=== PATIENT | female | born 1930 | race Caucasian/White ===

== ENCOUNTER 2020-11-25 17:38 | Inpatient (IN) ==
[2020-11-25] MEDS ORDERED: IOPAMIDOL 100 ML BOTTLE IV ONE (17:39)
--- NOTE | 2020-11-25 18:01 | Emergency Department Note ---
Abdominal Pain HPI General Chief Complaint: Flank Pain Stated Complaint: flank pain Time Seen by Provider: 11/25/20 22:55 Source: patient and EMS Mode of arrival: EMS Limitations: physical limitation (The patient's physical exam is limited somewhat by morbid obesity) History of Present Illness HPI Narrative: Narrative: Presents via EMS to room T6 for evaluation of left- sided flank pain, left-sided abdominal pain and change in mentation. The patient lives at home with her . She receives 24-hour in-home health care and her granddaughter checks on her frequently. The patient's history is provided primarily by the granddaughter as well as the patient. The patient symptoms started 2 to 3 days ago with pain primarily in the left lower quadrant extending into the left flank and paraspinal region. Symptoms are constant and have gotten progressively worse. The granddaughter notes that the patient has had a change in mentation since this morning. She states that she is "not herself". Patient also reports dry heaves with occasional vomiting. There is no rectal bleeding, melanotic stool or diarrhea. There is no dysuria, hematuria frequency urgency. No fevers or shaking chills. No chest pain. No shortness of breath. No cough or sputum production. There has been no reported fall or head injury. No additional trauma. Symptoms are constant. There are no reported exacerbating or alleviating factors. Related Data Home Medications Medication Instructions Recorded Confirmed aspirin 81 mg tablet,delayed 81 mg PO QDAY 12/27/18 11/25/20 release blood sugar diagnostic, drum #51 each 12/27/18 11/16/19 cholecalciferol (vitamin D3) 125 5,000 unit PO QDAY 12/27/18 11/25/20 mcg (5,000 unit) tablet coenzyme Q10 10 mg capsule 10 mg PO QDAY cap 12/27/18 11/25/20 cranberry 500 mg capsule 500 mg PO QDAY cap 12/27/18 11/25/20 insulin glargine 100 unit/mL See Rx Instructions SUB-Q QDAY 12/27/18 11/25/20 subcutaneous solution insulin syringe-needle U-100 1 mL #10 each 12/27/18 11/16/19 31 gauge x 5/16" medical compression stockings 1 dose MISCELLANE DAILY 12/27/18 11/25/20 meloxicam 15 mg tablet 15 mg PO QDAY 12/27/18 11/25/20 multivitamin 1 tab PO QDAY 12/27/18 11/25/20 omega-3 fatty acids 350 mg PO QDAY 12/27/18 11/25/20 lactobacillus combination no.8 3 3,000 mmu cells PO QDAY 08/17/19 11/25/20 billion cell capsule Previous Rx's Medication Instructions Recorded conjugated estrogens 0.625 mg/gram 0.3125 mg VAGINAL QDAY #30 g 08/17/19 vaginal cream levofloxacin 500 mg PO QDAY #4 tab 05/09/20 amoxicillin-pot clavulanate 1 tab PO BID #14 tab 05/29/20 [Augmentin] ondansetron 4 mg PO Q6H PRN #20 tab 07/08/20 Allergies Allergy/AdvReac Type Severity Reaction Status Date / Time azithromycin Allergy Severe SOB, Verified 07/08/20 15:34 throat swelling took a few weeks ago acetaminophen [From Vicodin] Allergy Unknown Unknown Verified 07/08/20 15:34 Benzonatate Allergy Unknown Unknown Verified 07/08/20 15:34 [From Tessalon Perles] cephalexin [From Keflex] Allergy Unknown unknown Verified 07/08/20 15:34 ciprofloxacin Allergy Unknown Unknown Verified 07/08/20 15:34 clindamycin Allergy Unknown unknown Verified 07/08/20 15:34 furosemide Allergy Unknown Unknown Verified 07/08/20 15:34 hydrocodone Allergy Unknown unknown Verified 07/08/20 15:34 metformin [From Glucophage] Allergy Unknown Unknown Verified 07/08/20 15:34 morphine Allergy Unknown Unknown Verified 07/08/20 15:34 nitrofurantoin Allergy Unknown unknown Verified 07/08/20 15:34 [From Macrobid] Nortriptyline Allergy Unknown Unknown Verified 07/08/20 15:34 oxytetracycline Allergy Unknown Unknown Verified 07/08/20 15:34 [From Terramycin] pioglitazone [From Actos] Allergy Unknown Unknown Verified 07/08/20 15:34 rofecoxib [From Vioxx] Allergy Unknown Unknown Verified 07/08/20 15:34 Rosiglitazone [From Avandia] Allergy Unknown Unknown Verified 07/08/20 15:34 Streptomycin Allergy Unknown Unknown Verified 07/08/20 15:34 Sulfa (Sulfonamide Allergy Unknown Unknown Verified 07/08/20 15:34 Antibiotics) Warfarin [From Coumadin] Allergy Unknown unknown Verified 07/08/20 15:34 Cefadroxil [From Duricef] AdvReac Unknown Yeast Verified 07/08/20 15:34 infection Review of Systems ROS ROS Narrative: Narrative: All systems ED: reviewed and negative except as stated. 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) Frequent UTI (Chronic) Fall (Chronic 11/2018) Obesity (Chronic) Myalgia (Chronic) Arthralgia (Chronic) Coughing (Chronic) Falling (Chronic) Dyspnea on exertion (Chronic) Edema (Chronic) Dysfunction ovarian (Chronic) Lymphedema (Chronic) Shoulder pain (Chronic) Leg pain, right (Chronic) Weakness of left side of body (Chronic) 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) Decreased mobility (Chronic) Cutaneous abscess of back [any part, except buttock] (Chronic) Hemorrhagic cystitis (Chronic) Other dermatophytoses (Chronic) Urinary incontinence (Chronic) Vitamin D deficiency (Chronic) Hyperlipidemia (Chronic) Type 2 diabetes mellitus without complications (Chronic) Fatigue (Chronic) SOB (shortness of breath) (Chronic) Benign essential hypertension (Chronic) Palpitations (Chronic) Influenza A virus present (Chronic) Nondisplaced fracture of proximal phalanx of left lesser toe(s), subsequent encounter for fracture with routine healing (Chronic) Candidiasis of skin (Chronic) Cellulitis of leg, right (Chronic) Cellulitis (Chronic) Edema extremities (Chronic) Right facial numbness (Chronic) Influenza A (Chronic) Open toe fracture (Chronic) Weakness (Chronic) Multiple falls (Chronic) Diabetes mellitus with insulin therapy (Chronic) History of hysterectomy (Chronic) Genitourinary bleeding (Chronic) UTI (urinary tract infection) (Chronic) Medical History (Updated 11/25/20 @ 23:16 by Omari Block MD) Arthralgia Benign essential hypertension Candidiasis of skin Cellulitis of leg, right Coughing Cutaneous abscess of back [any part, except buttock] Decreased mobility Dysfunction ovarian Dyspnea on exertion Edema Fall (11/2018) Fell out of wheelchair and lacerated and fractured her left fifth toe. Falling Fatigue Fracture of fifth toe, left, closed (11/2018) Frequent UTI Hemorrhagic cystitis Hyperlipidemia Influenza A virus present Leg pain, right Lumbar back pain with radiculopathy affecting lower extremity Lymphedema Morbid obesity Myalgia Myocardial infarct, old Nondisplaced fracture of proximal phalanx of left lesser toe(s), subsequent encounter for fracture with routine healing Obesity Other dermatophytoses Palpitations Shoulder pain SOB (shortness of breath) Type 2 diabetes mellitus without complications Urinary incontinence Vitamin D deficiency Weakness of left side of body Surgical History H/O: hysterectomy History of cholecystectomy History of total abdominal hysterectomy Family History Sister Breast cancer Unknown CAD (coronary artery disease) Cancer Myocardial infarction acute Social History Smoking Status: Never smoker Alcohol Intake Frequency: does not drink Substance Use: does not use Exam Narrative Narrative: Narrative: General Limitations: physical limitation (The patient's physical exam is limited somewhat by morbid obesity) General appearance: Present alert and in no apparent distress Head Head: Present atraumatic, normocephalic and normal inspection Eye Eye: Present normal appearance and EOMI; Absent conjunctival injection ENT ENT: Present normal exam and mucous membranes moist Neck Neck: Present normal inspection and trachea midline Respiratory Respiratory: Present normal lung sounds bilaterally; Absent respiratory distress Cardiovascular Cardiovascular: Present regular rate, normal rhythm and normal heart sounds Adbominal Abdominal: Present soft; Absent distention, tenderness, guarding and rebound Extremities Extremities: Present normal inspection; Absent tenderness Back Back: Present normal inspection, tenderness (There is diffuse tenderness to palpation primarily in the left paraspinal musculature.) and CVA tenderness (L) Neurological Neurological: Present alert, oriented X3 and CN II-XII intact; Absent motor sensory deficit Psychiatric Psychiatric: Present normal affect and normal mood Skin Skin: Present warm (WNL) and dry; Absent rash Course Vital Signs Vital signs: Vital Signs Temperature 98.2 F 11/25/20 17:40 Pulse Rate 100 H 11/25/20 17:40 Respiratory Rate 20 11/25/20 17:40 Blood Pressure 141/81 11/25/20 17:40 Pulse Oximetry (%) 98 11/25/20 17:40 Temperature 98.2 F 11/25/20 17:40 Pulse Rate 74 11/25/20 22:52 Respiratory Rate 16 11/25/20 22:52 Blood Pressure 100/50 11/25/20 22:52 Pulse Oximetry (%) 94 11/25/20 22:52 MDM MDM Narrative Medical decision making narrative: Narrative: Lab Data Lab results reviewed: Yes I reviewed the patient's lab results. Result diagrams: 11/25/20 18:17 11/25/20 18:17 Labs: Lab Results 11/25/20 11/25/20 11/25/20 Range/Units 18:16 18:17 18:17 WBC 15.8 H (4.5-11.0) K/mcL RBC 4.81 (4.00-5.20) M/mcL Hgb 14.1 (12.0-15.0) g/dL Hct 44.7 (36.0-48.0) % MCV 92.9 (80.0-100.0) fL MCH 29.3 (26.0-34.0) pg MCHC 31.5 (31.0-36.0) g/dL RDW 14.5 (11.5-14.5) % Plt Count 171 (140-440) K/mcL MPV 10.4 (7.4-10.4) fL Neut % (Auto) 92.1 H (38.0-78.0) % Lymph % (Auto) 3.7 L (15.0-49.0) % [place] % (Auto) 4.0 (1.0-12.0) % Eos % (Auto) 0 (0.0-7.0) % Baso % (Auto) 0.2 (0.0-2.0) % Lymph # (Auto) 0.58 L (1.50-4.80) K/mcL [place] # (Auto) 0.63 (0.10-0.90) K/mcL Eos # (Auto) 0 (0.00-0.70) K/mcL Baso # (Auto) 0.03 (0.00-0.20) K/mcL Absolute Neutrophils 14.57 H (1.80-8.00) K/mcL VBG Lactic Acid 2.6 H (0.5-2.0) mmol/L Sodium 135 (133-145) mmol/L Potassium 3.9 (3.3-5.1) mmol/L Chloride 102 (96-108) mmol/L Carbon Dioxide 24 (22-30) mmol/L Anion Gap 9.0 (8.0-16.0) BUN 9 (8-23) mg/dL Creatinine 0.8 (0.6-1.1) mg/dL POC Creatinine 0.6 (0.6-1.2) mg/dL GFR Calculation 66 Glucose 211 H (70-105) mg/dL Calcium 9.1 (8.6-10.4) mg/dL Total Bilirubin 1.1 H (0.1-1.0) mg/dL AST 37 H (<32) U/L ALT 18 (<40) U/L Alkaline Phosphatase 117 (39-117) U/L Total Protein 6.3 (5.9-8.4) gm/dL Albumin 3.2 (3.2-5.2) gm/dL Globulin 3.1 (2.2-3.7) gm/dL Albumin/Globulin Ratio 1.0 (1.0-2.3) Urine Color Urine Appearance (Clear) Urine pH (5.0-9.0) Ur Specific [place] (1.000-1.035) Urine Protein (Negative) mg/dL Urine Glucose (UA) (Negative) mg/dL Urine Ketones (Negative) mg/dL Urine Occult Blood (Negative) mg/dL Urine Nitrate (Negative) Urine Bilirubin (Negative) mg/dL Urine Urobilinogen mg/dL Ur Leukocyte Esterase (Negative) /ug Urine RBC (0-3) /hpf Urine WBC (0-4) /hpf Ur Squamous Epith Cells (0-4) /hpf Urine Bacteria (0) /hpf Urine Mucus (None) /hpf Ur Culture Indicated? 11/25/20 Range/Units 20:52 WBC (4.5-11.0) K/mcL RBC (4.00-5.20) M/mcL Hgb (12.0-15.0) g/dL Hct (36.0-48.0) % MCV (80.0-100.0) fL MCH (26.0-34.0) pg MCHC (31.0-36.0) g/dL RDW (11.5-14.5) % Plt Count (140-440) K/mcL MPV (7.4-10.4) fL Neut % (Auto) (38.0-78.0) % Lymph % (Auto) (15.0-49.0) % [place] % (Auto) (1.0-12.0) % Eos % (Auto) (0.0-7.0) % Baso % (Auto) (0.0-2.0) % Lymph # (Auto) (1.50-4.80) K/mcL [place] # (Auto) (0.10-0.90) K/mcL Eos # (Auto) (0.00-0.70) K/mcL Baso # (Auto) (0.00-0.20) K/mcL Absolute Neutrophils (1.80-8.00) K/mcL VBG Lactic Acid (0.5-2.0) mmol/L Sodium (133-145) mmol/L Potassium (3.3-5.1) mmol/L Chloride (96-108) mmol/L Carbon Dioxide (22-30) mmol/L Anion Gap (8.0-16.0) BUN (8-23) mg/dL Creatinine (0.6-1.1) mg/dL POC Creatinine (0.6-1.2) mg/dL GFR Calculation Glucose (70-105) mg/dL Calcium (8.6-10.4) mg/dL Total Bilirubin (0.1-1.0) mg/dL AST (<32) U/L ALT (<40) U/L Alkaline Phosphatase (39-117) U/L Total Protein (5.9-8.4) gm/dL Albumin (3.2-5.2) gm/dL Globulin (2.2-3.7) gm/dL Albumin/Globulin Ratio (1.0-2.3) Urine Color [place] Urine Appearance Cloudy A (Clear) Urine pH 5.0 (5.0-9.0) Ur Specific [place] 1.034 (1.000-1.035) Urine Protein 30 A (Negative) mg/dL Urine Glucose (UA) Negative (Negative) mg/dL Urine Ketones 5 A (Negative) mg/dL Urine Occult Blood >=1.0 A (Negative) mg/dL Urine Nitrate Pos A (Negative) Urine Bilirubin Negative (Negative) mg/dL Urine Urobilinogen Negative mg/dL Ur Leukocyte Esterase 250 A (Negative) /ug Urine RBC 76 H (0-3) /hpf Urine WBC 178 H (0-4) /hpf Ur Squamous Epith Cells 3 (0-4) /hpf Urine Bacteria Many A (0) /hpf Urine Mucus Many A (None) /hpf Ur Culture Indicated? yes ED POC Tests ED POC Tests: AGNIESZKA - Influenza A Negative AGNIESZKA - Influenza B Negative AGNIESZKA - SARS Antigen Negative Radiology Data Radiology results reviewed: Yes I reviewed the patient's radiology results. CC TIME Critical Care Time Critical Care Time: Yes Total Critical Care Time: 30 Attestation: Approximately [30] minutes of critical care time was used in order to assess and manage the high probability of imminent or life threatening deterioration to genitourinary, infectious disease which required my highest level of p reparedness and interventions with frequent patient assessments. This time is excluding time spent on separately billable procedures. The patient presents for evaluation of generalized malaise with left flank and left lower quadrant abdominal pain. CT scan shows evidence of mid ureterolithiasis with 2 mm stone and hydronephrosis. Patient's urinalysis is consistent with infection. The WBCs are elevated and the lactic acid is 2.6 consistent with severe sepsis. There is no acute kidney injury noted with normal BUN and creatinine. There is no CO2 of 24. The patient was given IV antibiotics after blood cultures. The patient is morbidly obese and th blood pressure measurements have occasionally been spurious. The patient has low blood pressure at baseline. Manual blood pressure is 105/58 with a of 74. I discussed the case with Dr. Gonzalez, urologist. He agrees to consult on the pat ient and agrees with current management with antibiotics and fluids. I have also discussed the case with the admitting hospitalist. We will add that the patient to the medical floor. The patient will be n.p.o. after midnight. Discharge Plan Patient/Caregiver Discharge Instructions Pt seen by BAR HOST/HOSTESS/PA only: No Clinical Impression: Acute pyelonephritis, Ureterolithiasis Patient Disposition: Xfer As Inpt ([facility]) Follow up with: Red Love DO [Primary Care Provider] - Prescriptions: No Action meloxicam 15 mg tablet 15 mg PO QDAY RF: 0 Lantus U-100 Insulin 100 unit/mL solution See Rx Instructions SUB-Q QDAY RF: 0 aspirin 81 mg tablet,delayed release (DR/EC) 81 mg PO QDAY RF: 0 cranberry 500 mg capsule 500 mg PO QDAY RF: 0 coenzyme Q10 [Co Q-10] 10 mg capsule 10 mg PO QDAY RF: 0 omega-3 fatty acids 350 mg PO QDAY RF: 0 multivitamin tablet 1 tab PO QDAY RF: 0 (DME) insulin syringe-needle U-100 [BD Insulin Syringe Ultra-Fine] 1 mL 31 ga uge x 5/ syringe See Dose Instructions .ROUTE .MEDSUPPLY Qty: 10 RF: 0 cholecalciferol (vitamin D3) 5,000 unit tablet 5,000 unit tablet 5,000 unit PO QDAY RF: 0 (DME) blood sugar diagnostic, drum-type strips strip See Dose Instructions .ROUTE .MEDSUPPLY Qty: 51 RF: 0 medical compression stockings 1 dose MISCELLANE DAILY RF: 0 lactobacillus combination no.8 3 billion cell capsule 3 billion cell capsule 3,000 mmu cells PO QDAY RF: 0 Premarin 0.625 mg/gram cream 0.3125 mg VAGINAL QDAY Qty: 30 RF: 6 levofloxacin 500 mg tablet 500 mg PO QDAY Qty: 4 RF: 0 amoxicillin-pot clavulanate [Augmentin] 875-125 mg tablet 1 tab PO BID Qty: 14 RF: 0 ondansetron 4 mg tablet,disintegrating 4 mg PO Q6H PRN (Reason: nausea and vomiting) Qty: 20 RF: 0
[2020-11-25] MEDS ORDERED: ONDANSETRON 4 MG/2 ML VIAL IV ONE ×2 (18:05→21:54)
[2020-11-25] MEDS ORDERED: HYDROmorphone 0.5 MG/0.5 ML SYRINGE IV ONE (18:05)
[2020-11-25 18:23] LABS: POC Creatinine 0.6 mg/dL (0.6-1.2)
[2020-11-25 19:08] LABS: Basophils # (Auto) 0.03 K/mcL (0.00-0.20); Basophils % (Auto) 0.2 % (0.0-2.0); Eosinophils # (Auto) 0 K/mcL (0.00-0.70); Eosinophils % (Auto) 0 % (0.0-7.0); Hematocrit 44.7 % (36.0-48.0); Hemoglobin 14.1 g/dL (12.0-15.0); Lymphocytes # (Auto) 0.58 K/mcL (1.50-4.80); Lymphocytes % (Auto) 3.7 % (15.0-49.0); Mean Cell Volume 92.9 fL (80.0-100.0); Mean Corpuscular HGB Conc 31.5 g/dL (31.0-36.0); Mean Platelet Volume 10.4 fL (7.4-10.4); Monocytes # (Auto) 0.63 K/mcL (0.10-0.90); Neutrophils % (Auto) 92.1 % (38.0-78.0); Platelet Count 171 K/mcL (140-440); RBC 4.81 M/mcL (4.00-5.20); Red Cell Distribution Width 14.5 % (11.5-14.5); WBC 15.8 K/mcL (4.5-11.0)
[2020-11-25 19:30] LABS: ALT/SGPT 18 U/L (<40); AST/SGOT 37 U/L (<32); Albumin 3.2 gm/dL (3.2-5.2); Alkaline Phosphatase 117 U/L (39-117); Bilirubin,Total 1.1 mg/dL (0.1-1.0); Blood Urea Nitrogen 9 mg/dL (8-23); Calcium 9.1 mg/dL (8.6-10.4); Carbon Dioxide 24 mmol/L (22-30); Chloride 102 mmol/L (96-108); Globulin 3.1 gm/dL (2.2-3.7); Glomerular Filtration Rate 66; Glucose 211 mg/dL (70-105)
[2020-11-25] MEDS ORDERED: PIPERACILLIN SODIUM/TAZOBACTAM 4.5 GM in DEXTROSE 5% IN WATER 50 ML IV ONE (20:09)
[2020-11-25 22:02] LABS: Appearance,Urine CLOUDY (Clear); Bacteria,Urine MANY /hpf (0); Bilirubin,Urine Negative (Negative); Color,Urine AMBER; Culture Indicated,Urine yes; Glucose,Urine (UA) Negative (Negative); Ketones,Urine 5 mg/dL (Negative); Leukocyte Esterase,Urine 250 /ug (Negative); Mucus,Urine MANY /hpf; Nitrate,Urine POS (Negative); Protein,Urine 30 mg/dL (Negative); Specific Gravity,Urine 1.034 (1.000-1.035); Urine Blood >=1.0 mg/dL (Negative); Urine RBC 76 /hpf (0-3); Urine Squamous Epithelial Cell 3 /hpf (0-4); Urine WBC 178 /hpf (0-4); Urobilinogen,Urine Negative
[2020-11-26] MEDS ORDERED: DEXTROSE 31 GM ORAL.SUSP PO PRN
[2020-11-26] MEDS ORDERED: DEXTROSE 50% 50 ML VIAL IV PRN
[2020-11-26] MEDS ORDERED: ONDANSETRON 4 MG/2 ML VIAL IV PRN ×3 (00:03→09:42)
[2020-11-26] MEDS: 0.9 % SODIUM CHLORIDE 1,000 ML IV SCH ×2 (01:19→12:11)
[2020-11-26] MEDS: PIPERACILLIN SODIUM/TAZOBACTAM 3.375 GM in DEXTROSE 5% IN WATER 50 ML IV SCH ×2 (01:23→05:40)
--- NOTE | 2020-11-26 05:19 | Cat Scan Report ---
CLINICAL INFORMATION: Left flank pain COMPARISON: Chest CT 08/06/2014. TECHNIQUE: Following enteric contrast, 80 cc of Isovue-370 were injected intravenously, and 60 seconds later, 0.625 mm helical slices were obtained from the mid heart through the subtrochanteric regions. Following reconstruction, 2.5 mm sagittal, coronal and axial reformatted images were processed and reviewed at bone, lung and soft tissue windows. Five minutes later, 0.625 mm helical slices were obtained from the mid heart through the kidneys and viewed at soft tissue windows.The exam was performed using radiation dose optimization techniques including, but not limited to, automated exposure control, adjustment of the mA and/or kV according to patient size and use of iterative reconstruction technique. FINDINGS: Lung bases show minimal scattered atelectasis and/or scarring. There are no effusions. The heart is moderately enlarged with extremely heavy calcification in the mitral annulus. Mild aortic valve calcification is also noted. No change from remote chest CT Abdominal images show the gallbladder and bile ducts, liver, spleen, and pancreas are normal in size, configuration and attenuation without focal lesion. 15 mm low-attenuation lesion in the left adrenal gland and 17 mm low-attenuation lesion in the right adrenal gland are unchanged from a 08/06/[address] compatible with benign adenomas. Mild left hydronephrosis due to a small (2 mm) stone in the proximal left ureter. Mild perinephric edema is also noted. Urinary bladder is incompletely distended. Hysterectomy and oophorectomy changes noted. The stomach, small and large bowel are grossly normal. Small periumbilical hernia contains only mesenteric fat. Bone windows show no osseous abnormality. Severe degenerative change is present in both hips. IMPRESSION: 1. 2 mm stone in the proximal left ureter resulting in moderate left hydroureter/hydronephrosis. 2. 15 mm benign adenoma left adrenal gland and 17 mm benign adenoma right adrenal gland - both stable since chest CT over six years ago. 3. Severe bilateral hip degeneration 4. L4-5: Moderate broad disc protrusion facet arthropathy resulting in severe central canal and moderate lateral recess narrowing. There is impingement of the descending L5 nerve roots. 5. Small periumbilical hernia containing only mesenteric fat. Interpreted and Authenticated by: Johny Chavez 11/26/20
[2020-11-26] MEDS: INSULIN LISPRO 1 UNIT/0.01 ML UNIT SQ SCH ×4 (07:38→21:37)
--- NOTE | 2020-11-26 07:40 | Internal Med History&Physical ---
HPI History of Present Illness Patient information: Note initiated : 11/26/20 at 7:32 am Service Date, if different from initiated Date: [] Patient: Tiny Banuelos 89 y/o F admitted on 11/26/20 for flank pain. Chief Complaint: [] History of present illness: Ms. Banuelos is a 89 year old F Who presents to the ED with left-sided pain sharp for 3 days. Continue to worsen as well as having malodorous urine as well as nausea and vomiting. Work-up in the ED showed a stone in the left side with medical findings consistent with pyelonephritis. Dr. Gonzalez was contacted. Patient started on antibiotics IV fluids. Lactate was mildly elevated 2.6. Blood cultures drawn. No fevers or chills chest pain or shortness of breath. Patient has low blood pressure baseline per report. Review of Systems: Pertinent positives as above. Denies headache/fever/chills/chest pain/cough/dyspnea/diarrhea. Remaining 10 point review of system reviewed negative PFSH PFSH All Active Problems (Updated 11/25/20 @ 23:16 by Omari Block MD) Gastroenteritis (Acute) Acute pyelonephritis (Acute) Ureterolithiasis (Acute) Morbid obesity (Chronic) Acute upper respiratory infection (Acute) Acute bronchitis (Acute) Scintillating scotoma (Acute) Fracture of fifth toe, left, closed (Chronic 11/2018) Myocardial infarct, old (Chronic) Frequent UTI (Chronic) Fall (Chronic 11/2018) Obesity (Chronic) Myalgia (Chronic) Arthralgia (Chronic) Coughing (Chronic) Falling (Chronic) Dyspnea on exertion (Chronic) Edema (Chronic) Dysfunction ovarian (Chronic) Lymphedema (Chronic) Shoulder pain (Chronic) Leg pain, right (Chronic) Weakness of left side of body (Chronic) 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) Decreased mobility (Chronic) Cutaneous abscess of back [any part, except buttock] (Chronic) Hemorrhagic cystitis (Chronic) Other dermatophytoses (Chronic) Urinary incontinence (Chronic) Vitamin D deficiency (Chronic) Hyperlipidemia (Chronic) Type 2 diabetes mellitus without complications (Chronic) Fatigue (Chronic) SOB (shortness of breath) (Chronic) Benign essential hypertension (Chronic) Palpitations (Chronic) Influenza A virus present (Chronic) Nondisplaced fracture of proximal phalanx of left lesser toe(s), subsequent encounter for fracture with routine healing (Chronic) Candidiasis of skin (Chronic) Cellulitis of leg, right (Chronic) Cellulitis (Chronic) Edema extremities (Chronic) Right facial numbness (Chronic) Influenza A (Chronic) Open toe fracture (Chronic) Weakness (Chronic) Multiple falls (Chronic) Diabetes mellitus with insulin therapy (Chronic) History of hysterectomy (Chronic) Genitourinary bleeding (Chronic) UTI (urinary tract infection) (Chronic) Medical History (Updated 11/25/20 @ 23:16 by Omari Block MD) Arthralgia Benign essential hypertension Candidiasis of skin Cellulitis of leg, right Coughing Cutaneous abscess of back [any part, except buttock] Decreased mobility Dysfunction ovarian Dyspnea on exertion Edema Fall (11/2018) Fell out of wheelchair and lacerated and fractured her left fifth toe. Falling Fatigue Fracture of fifth toe, left, closed (11/2018) Frequent UTI Hemorrhagic cystitis Hyperlipidemia Influenza A virus present Leg pain, right Lumbar back pain with radiculopathy affecting lower extremity Lymphedema Morbid obesity Myalgia Myocardial infarct, old Nondisplaced fracture of proximal phalanx of left lesser toe(s), subsequent encounter for fracture with routine healing Obesity Other dermatophytoses Palpitations Shoulder pain SOB (shortness of breath) Type 2 diabetes mellitus without complications Urinary incontinence Vitamin D deficiency Weakness of left side of body Surgical History H/O: hysterectomy History of cholecystectomy History of total abdominal hysterectomy Family History Sister Breast cancer Unknown CAD (coronary artery disease) Cancer Myocardial infarction acute Social History (Updated 11/21/19 @ 18:21 by Rom Nguyen MD) marital status: occupational status: disabled smoking status: Never smoker alcohol intake frequency: does not drink substance use type: does not use MEDS/ALLERGIES Home Medications and Allergies Home Medications Medication Instructions Recorded Confirmed Type aspirin 81 mg tablet,delayed 81 mg PO QDAY 12/27/18 11/25/20 History release cholecalciferol (vitamin D3) 125 5,000 unit PO QDAY 12/27/18 11/25/20 History mcg (5,000 unit) tablet coenzyme Q10 10 mg capsule 10 mg PO QDAY cap 12/27/18 11/25/20 History cranberry 500 mg capsule 500 mg PO QDAY cap 12/27/18 11/25/20 History insulin glargine 100 unit/mL See Rx Instructions SUB-Q QDAY 12/27/18 11/25/20 History subcutaneous solution medical compression stockings 1 dose MISCELLANE DAILY 12/27/18 11/25/20 History meloxicam 15 mg tablet 15 mg PO QDAY 12/27/18 11/25/20 History multivitamin 1 tab PO QDAY 12/27/18 11/25/20 History omega-3 fatty acids 350 mg PO QDAY 12/27/18 11/25/20 History conjugated estrogens 0.625 mg/gram 0.3125 mg VAGINAL QDAY #30 g 08/17/19 11/25/20 Rx vaginal cream lactobacillus combination no.8 3 3,000 mmu cells PO QDAY 08/17/19 11/25/20 History billion cell capsule levofloxacin 500 mg PO QDAY #4 tab 05/09/20 11/25/20 Rx amoxicillin-pot clavulanate 1 tab PO BID #14 tab 05/29/20 11/25/20 Rx [Augmentin] ondansetron 4 mg PO Q6H PRN #20 tab 07/08/20 11/25/20 Rx Allergies Allergy/AdvReac Type Severity Reaction Status Date / Time azithromycin Allergy Severe SOB, Verified 11/26/20 10:47 throat swelling took a few weeks ago acetaminophen [From Vicodin] AdvReac Mild Vomiting Verified 11/26/20 10:47 Benzonatate AdvReac Mild Vomiting Verified 11/26/20 10:47 [From Tessalon Perles] Cefadroxil [From Duricef] AdvReac Mild Yeast Verified 11/26/20 10:26 infection cephalexin [From Keflex] AdvReac Mild Vomiting Verified 11/26/20 10:47 ciprofloxacin AdvReac Mild Vomiting Verified 11/26/20 10:47 clindamycin AdvReac Mild Vomiting Verified 11/26/20 10:47 furosemide AdvReac Mild Vomiting Verified 11/26/20 10:47 hydrocodone AdvReac Mild Vomiting Verified 11/26/20 10:47 metformin [From Glucophage] AdvReac Mild Vomiting Verified 11/26/20 10:47 morphine AdvReac Mild Vomiting Verified 11/26/20 10:47 nitrofurantoin AdvReac Mild Vomiting Verified 11/26/20 10:47 [From Macrobid] Nortriptyline AdvReac Mild Vomiting Verified 11/26/20 10:47 oxytetracycline AdvReac Mild Vomiting Verified 11/26/20 10:47 [From Terramycin] pioglitazone [From Actos] AdvReac Mild Vomiting Verified 11/26/20 10:47 rofecoxib [From Vioxx] AdvReac Mild Vomiting Verified 11/26/20 10:47 Rosiglitazone [From Avandia] AdvReac Mild Vomiting Verified 11/26/20 10:47 Streptomycin AdvReac Mild Vomiting Verified 11/26/20 10:47 Sulfa (Sulfonamide AdvReac Mild Vomiting Verified 11/26/20 10:47 Antibiotics) Warfarin [From Coumadin] AdvReac Mild Vomiting Verified 11/26/20 10:47 EXAM Constitutional Vitals: Temp Pulse Resp BP Pulse Ox 98.0 F 71 16 127/74 98 11/26/20 03:35 11/26/20 03:35 11/26/20 03:35 11/26/20 03:35 11/26/20 03:35 Exam: General: Alert, Awake, No acute Distress, obese Eyes/N/T: EOMI, PERRL, dry MM Head/Neck: neck supple, normocephalic atraumatic CV: RRR, No murmurs, normal s1/s2 Pulm: Clear b/l, no wheezing/rhonchi/rales Abd: soft, nontender, +BS x4 Ext: no clubbing/cyanosis/edema Neuro: Alert, no focal deficits, moves all extremities, CN 2-12 grossly intact, symmetrical strength b/l upper/lower, sensations intact b/l upper/lower Skin: warm/dry DATA Data Completed and Pending Labs: Labs from last 24 hours 11/26/20 11/25/20 11/25/20 05:18 20:52 18:17 WBC RBC Hgb Hct MCV MCH MCHC RDW Plt Count MPV Neut % (Auto) Lymph % (Auto) [place] % (Auto) Eos % (Auto) Baso % (Auto) Lymph # (Auto) [place] # (Auto) Eos # (Auto) Baso # (Auto) Absolute Neutrophils PT Pending INR Pending VBG Lactic Acid Sodium 135 Potassium 3.9 Chloride 102 Carbon Dioxide 24 Anion Gap 9.0 BUN 9 Creatinine 0.8 POC Creatinine 0.6 GFR Calculation 66 Glucose 211 H Calcium 9.1 Total Bilirubin 1.1 H AST 37 H ALT 18 Alkaline Phosphatase 117 Total Protein 6.3 Albumin 3.2 Globulin 3.1 Albumin/Globulin Ratio 1.0 Urine Color Cassandra Urine Appearance Cloudy A Urine pH 5.0 Ur Specific [place] 1.034 Urine Protein 30 A Urine Glucose (UA) Negative Urine Ketones 5 A Urine Occult Blood >=1.0 A Urine Nitrate Pos A Urine Bilirubin Negative Urine Urobilinogen Negative Ur Leukocyte Esterase 250 A Urine RBC 76 H Urine WBC 178 H Ur Squamous Epith Cells 3 Urine Bacteria Many A Urine Mucus Many A Ur Culture Indicated? yes 11/25/20 11/25/20 18:17 18:16 WBC 15.8 H RBC 4.81 Hgb 14.1 Hct 44.7 MCV 92.9 MCH 29.3 MCHC 31.5 RDW 14.5 Plt Count 171 MPV 10.4 Neut % (Auto) 92.1 H Lymph % (Auto) 3.7 L [place] % (Auto) 4.0 Eos % (Auto) 0 Baso % (Auto) 0.2 Lymph # (Auto) 0.58 L [place] # (Auto) 0.63 Eos # (Auto) 0 Baso # (Auto) 0.03 Absolute Neutrophils 14.57 H PT INR VBG Lactic Acid 2.6 H Sodium Potassium Chloride Carbon Dioxide Anion Gap BUN Creatinine POC Creatinine GFR Calculation Glucose Calcium Total Bilirubin AST ALT Alkaline Phosphatase Total Protein Albumin Globulin Albumin/Globulin Ratio Urine Color Urine Appearance Urine pH Ur Specific Oaks Urine Protein Urine Glucose (UA) Urine Ketones Urine Occult Blood Urine Nitrate Urine Bilirubin Urine Urobilinogen Ur Leukocyte Esterase Urine RBC Urine WBC Ur Squamous Epith Cells Urine Bacteria Urine Mucus Ur Culture Indicated? A/P Narrative A/P Narrative: A: *Left Hydronephrosis/hydroureter from obstructing stone: s/p stent (11/26) *UTI: *SIRS/?Sepsis: improving *Obesity: *DM: *chronic lymphedema/venous stasis P: -Urologist following, second stage ureteroscopy when infection cleared -currently on Zosyn (multiple allergies and h/o resistant organism), pending UC/BC -IVF until PO intake -basal and SSI -pt/ot -CM for placement needs -ppx: lovenox bid for obesity (SCD until seen by surgery) DNR Time Spent With Patient Time: Total time spent is greater than 50% in coordination of care (as documented) at patient's floor/unit and/or counseling patient: QUALITY VTE Deep Vein Thrombosis/Pulmonary Embolism Present on Admission: No
--- NOTE | 2020-11-26 08:06 | General Surgery Consult Note ---
HPI Data of Consult Consult date: 11/26/20 Primary Care Provider: Red Love DO Consult Narrative Reason for consult: sepsis and left ureteral stone History of present illness: 89 y/o with flank pain and fever found to have hydronephrosis and stone in mid left ureter. admitted for treatment by medicine service. cc:: CC: Carmine Baez Review of Systems Review of systems: multiple allergies and DM past multiple UTIs PFSH PFSH All Active Problems (Updated 11/25/20 @ 23:16 by Omari Block MD) Gastroenteritis (Acute) Acute pyelonephritis (Acute) Ureterolithiasis (Acute) Morbid obesity (Chronic) Acute upper respiratory infection (Acute) Acute bronchitis (Acute) Scintillating scotoma (Acute) Fracture of fifth toe, left, closed (Chronic 11/2018) Myocardial infarct, old (Chronic) Frequent UTI (Chronic) Fall (Chronic 11/2018) Obesity (Chronic) Myalgia (Chronic) Arthralgia (Chronic) Coughing (Chronic) Falling (Chronic) Dyspnea on exertion (Chronic) Edema (Chronic) Dysfunction ovarian (Chronic) Lymphedema (Chronic) Shoulder pain (Chronic) Leg pain, right (Chronic) Weakness of left side of body (Chronic) 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) Decreased mobility (Chronic) Cutaneous abscess of back [any part, except buttock] (Chronic) Hemorrhagic cystitis (Chronic) Other dermatophytoses (Chronic) Urinary incontinence (Chronic) Vitamin D deficiency (Chronic) Hyperlipidemia (Chronic) Type 2 diabetes mellitus without complications (Chronic) Fatigue (Chronic) SOB (shortness of breath) (Chronic) Benign essential hypertension (Chronic) Palpitations (Chronic) Influenza A virus present (Chronic) Nondisplaced fracture of proximal phalanx of left lesser toe(s), subsequent encounter for fracture with routine healing (Chronic) Candidiasis of skin (Chronic) Cellulitis of leg, right (Chronic) Cellulitis (Chronic) Edema extremities (Chronic) Right facial numbness (Chronic) Influenza A (Chronic) Open toe fracture (Chronic) Weakness (Chronic) Multiple falls (Chronic) Diabetes mellitus with insulin therapy (Chronic) History of hysterectomy (Chronic) Genitourinary bleeding (Chronic) UTI (urinary tract infection) (Chronic) Medical History (Updated 11/25/20 @ 23:16 by Omari Block MD) Arthralgia Benign essential hypertension Candidiasis of skin Cellulitis of leg, right Coughing Cutaneous abscess of back [any part, except buttock] Decreased mobility Dysfunction ovarian Dyspnea on exertion Edema Fall (11/2018) Fell out of wheelchair and lacerated and fractured her left fifth toe. Falling Fatigue Fracture of fifth toe, left, closed (11/2018) Frequent UTI Hemorrhagic cystitis Hyperlipidemia Influenza A virus present Leg pain, right Lumbar back pain with radiculopathy affecting lower extremity Lymphedema Morbid obesity Myalgia Myocardial infarct, old Nondisplaced fracture of proximal phalanx of left lesser toe(s), subsequent encounter for fracture with routine healing Obesity Other dermatophytoses Palpitations Shoulder pain SOB (shortness of breath) Type 2 diabetes mellitus without complications Urinary incontinence Vitamin D deficiency Weakness of left side of body Surgical History H/O: hysterectomy History of cholecystectomy History of total abdominal hysterectomy Family History Sister Breast cancer Unknown CAD (coronary artery disease) Cancer Myocardial infarction acute Social History (Updated 11/21/19 @ 18:21 by Rom Nguyen MD) marital status: occupational status: disabled smoking status: Never smoker alcohol intake frequency: does not drink substance use type: does not use MEDS/ALLERGIES Home Medications and Allergies Home Medications Medication Instructions Recorded Confirmed Type aspirin 81 mg tablet,delayed 81 mg PO QDAY 12/27/18 11/25/20 History release blood sugar diagnostic, drum #51 each 12/27/18 11/16/19 History cholecalciferol (vitamin D3) 125 5,000 unit PO QDAY 12/27/18 11/25/20 History mcg (5,000 unit) tablet coenzyme Q10 10 mg capsule 10 mg PO QDAY cap 12/27/18 11/25/20 History cranberry 500 mg capsule 500 mg PO QDAY cap 12/27/18 11/25/20 History insulin glargine 100 unit/mL See Rx Instructions SUB-Q QDAY 12/27/18 11/25/20 History subcutaneous solution insulin syringe-needle U-100 1 mL #10 each 12/27/18 11/16/19 History 31 gauge x 5/16" medical compression stockings 1 dose MISCELLANE DAILY 12/27/18 11/25/20 History meloxicam 15 mg tablet 15 mg PO QDAY 12/27/18 11/25/20 History multivitamin 1 tab PO QDAY 12/27/18 11/25/20 History omega-3 fatty acids 350 mg PO QDAY 12/27/18 11/25/20 History conjugated estrogens 0.625 mg/gram 0.3125 mg VAGINAL QDAY #30 g 08/17/19 11/25/20 Rx vaginal cream lactobacillus combination no.8 3 3,000 mmu cells PO QDAY 08/17/19 11/25/20 History billion cell capsule levofloxacin 500 mg PO QDAY #4 tab 05/09/20 11/25/20 Rx amoxicillin-pot clavulanate 1 tab PO BID #14 tab 05/29/20 11/25/20 Rx [Augmentin] ondansetron 4 mg PO Q6H PRN #20 tab 07/08/20 11/25/20 Rx Allergies Allergy/AdvReac Type Severity Reaction Status Date / Time azithromycin Allergy Severe SOB, Verified 07/08/20 15:34 throat swelling took a few weeks ago acetaminophen [From Vicodin] Allergy Unknown Unknown Verified 07/08/20 15:34 Benzonatate Allergy Unknown Unknown Verified 07/08/20 15:34 [From Tessalon Perles] cephalexin [From Keflex] Allergy Unknown unknown Verified 07/08/20 15:34 ciprofloxacin Allergy Unknown Unknown Verified 07/08/20 15:34 clindamycin Allergy Unknown unknown Verified 07/08/20 15:34 furosemide Allergy Unknown Unknown Verified 07/08/20 15:34 hydrocodone Allergy Unknown unknown Verified 07/08/20 15:34 metformin [From Glucophage] Allergy Unknown Unknown Verified 07/08/20 15:34 morphine Allergy Unknown Unknown Verified 07/08/20 15:34 nitrofurantoin Allergy Unknown unknown Verified 07/08/20 15:34 [From Macrobid] Nortriptyline Allergy Unknown Unknown Verified 07/08/20 15:34 oxytetracycline Allergy Unknown Unknown Verified 07/08/20 15:34 [From Terramycin] pioglitazone [From Actos] Allergy Unknown Unknown Verified 07/08/20 15:34 rofecoxib [From Vioxx] Allergy Unknown Unknown Verified 07/08/20 15:34 Rosiglitazone [From Avandia] Allergy Unknown Unknown Verified 07/08/20 15:34 Streptomycin Allergy Unknown Unknown Verified 07/08/20 15:34 Sulfa (Sulfonamide Allergy Unknown Unknown Verified 07/08/20 15:34 Antibiotics) Warfarin [From Coumadin] Allergy Unknown unknown Verified 07/08/20 15:34 Cefadroxil [From Duricef] AdvReac Unknown Yeast Verified 07/08/20 15:34 infection Physical Examination Vital Signs Vital signs: Temp Pulse Resp BP Pulse Ox 98.0 F 71 16 127/74 98 11/26/20 03:35 11/26/20 03:35 11/26/20 03:35 11/26/20 03:35 11/26/20 03:35 General physical appearance General physical exam: well developed, well nourished and moderate distress Eyes Eye exam: PERRL and normal ocular movement ENT ENT exam: normal pinna, normal nares, normal mucosa, no hearing loss and no congestion Head Head exam IM: Present atraumatic and normocephalic Neck Neck exam: no masses, no bruits, trachea midline, no lymphadenopathy and no venous distension Cardiovascular Cardiovascular exam IM: Present normal rate and rhythm Respiratory Respiratory exam: normal expansion, normal respiratory effort, clear to percussion and clear to auscultation Abdomen Abdomen: Present soft (morbid obesity) Hernia: Present none Genitourinary Genitourinary (Female): Present other (not done) Rectum Rectum: Present normal sphincter tone, no hemorrhoids, no tenderness, no masses and no bleeding Integumentary Integumentary: Present no rash, no growths and no abnormal pigmentation Neurologic Neurologic: Present normal coordination and normal sensation Musculoskeletal Musculoskeletal: Present normal gait and normal posture Psychiatric Psychiatric: Present oriented to time, oriented to person, oriented to place, speech is normal and memory intact Results Labs Result diagrams: 11/25/20 18:17 11/25/20 18:17 Labs: Abnormal lab results 11/25/20 11/25/20 11/25/20 Range/Units 18:16 18:17 18:17 WBC 15.8 H (4.5-11.0) K/mcL Neut % (Auto) 92.1 H (38.0-78.0) % Lymph % (Auto) 3.7 L (15.0-49.0) % Lymph # (Auto) 0.58 L (1.50-4.80) K/mcL Absolute Neutrophils 14.57 H (1.80-8.00) K/mcL VBG Lactic Acid 2.6 H (0.5-2.0) mmol/L Glucose 211 H (70-105) mg/dL Total Bilirubin 1.1 H (0.1-1.0) mg/dL AST 37 H (<32) U/L Urine Appearance (Clear) Urine Protein (Negative) mg/dL Urine Ketones (Negative) mg/dL Urine Occult Blood (Negative) mg/dL Urine Nitrate (Negative) Ur Leukocyte Esterase (Negative) /ug Urine RBC (0-3) /hpf Urine WBC (0-4) /hpf Urine Bacteria (0) /hpf Urine Mucus (None) /hpf 11/25/20 Range/Units 20:52 WBC (4.5-11.0) K/mcL Neut % (Auto) (38.0-78.0) % Lymph % (Auto) (15.0-49.0) % Lymph # (Auto) (1.50-4.80) K/mcL Absolute Neutrophils (1.80-8.00) K/mcL VBG Lactic Acid (0.5-2.0) mmol/L Glucose (70-105) mg/dL Total Bilirubin (0.1-1.0) mg/dL AST (<32) U/L Urine Appearance Cloudy A (Clear) Urine Protein 30 A (Negative) mg/dL Urine Ketones 5 A (Negative) mg/dL Urine Occult Blood >=1.0 A (Negative) mg/dL Urine Nitrate Pos A (Negative) Ur Leukocyte Esterase 250 A (Negative) /ug Urine RBC 76 H (0-3) /hpf Urine WBC 178 H (0-4) /hpf Urine Bacteria Many A (0) /hpf Urine Mucus Many A (None) /hpf Diabetes panel 11/25/20 Range/Units 18:17 Sodium 135 (133-145) mmol/L Potassium 3.9 (3.3-5.1) mmol/L Chloride 102 (96-108) mmol/L Carbon Dioxide 24 (22-30) mmol/L BUN 9 (8-23) mg/dL Creatinine 0.8 (0.6-1.1) mg/dL Glucose 211 H (70-105) mg/dL Calcium 9.1 (8.6-10.4) mg/dL AST 37 H (<32) U/L ALT 18 (<40) U/L Alkaline Phosphatase 117 (39-117) U/L Total Protein 6.3 (5.9-8.4) gm/dL Albumin 3.2 (3.2-5.2) gm/dL Calcium panel 11/25/20 Range/Units 18:17 Calcium 9.1 (8.6-10.4) mg/dL Albumin 3.2 (3.2-5.2) gm/dL Pituitary panel 11/25/20 Range/Units 18:17 Sodium 135 (133-145) mmol/L Potassium 3.9 (3.3-5.1) mmol/L Chloride 102 (96-108) mmol/L Carbon Dioxide 24 (22-30) mmol/L BUN 9 (8-23) mg/dL Creatinine 0.8 (0.6-1.1) mg/dL Glucose 211 H (70-105) mg/dL Calcium 9.1 (8.6-10.4) mg/dL Adrenal panel 11/25/20 Range/Units 18:17 Sodium 135 (133-145) mmol/L Potassium 3.9 (3.3-5.1) mmol/L Chloride 102 (96-108) mmol/L Carbon Dioxide 24 (22-30) mmol/L BUN 9 (8-23) mg/dL Creatinine 0.8 (0.6-1.1) mg/dL Glucose 211 H (70-105) mg/dL Calcium 9.1 (8.6-10.4) mg/dL Total Bilirubin 1.1 H (0.1-1.0) mg/dL AST 37 H (<32) U/L ALT 18 (<40) U/L Alkaline Phosphatase 117 (39-117) U/L Total Protein 6.3 (5.9-8.4) gm/dL Albumin 3.2 (3.2-5.2) gm/dL All other labs normal. A/P Narrative A/P Narrative: febrile and with flank pain c/w stone and obstruction c/w CT imaging discussed options and needs emergent/urgent decompression with stone pushback and stent placement Discussed and patient agrees to plan and will likely need secondary URS and lithotripsy when medically controlled and UTI adequately treated Time Spent With Patient Time: Total time spent is greater than 50% in coordination of care (as documented) at patient's floor/unit and/or counseling patient:
[2020-11-26 08:10] LABS: INR 1.1 (0.9-1.1); Prothrombin Time 14.8 sec (11.9-14.5)
[2020-11-26 08:22] LABS: Basophils # (Auto) 0.04 K/mcL (0.00-0.20); Basophils % (Auto) 0.3 % (0.0-2.0); Eosinophils # (Auto) 0.03 K/mcL (0.00-0.70); Eosinophils % (Auto) 0.2 % (0.0-7.0); Hematocrit 43.5 % (36.0-48.0); Hemoglobin 13.6 g/dL (12.0-15.0); Lymphocytes # (Auto) 2.12 K/mcL (1.50-4.80); Lymphocytes % (Auto) 13.3 % (15.0-49.0); Mean Cell Volume 95.2 fL (80.0-100.0); Mean Corpuscular HGB Conc 31.3 g/dL (31.0-36.0); Mean Platelet Volume 10.6 fL (7.4-10.4); Monocytes % (Auto) 8.2 % (1.0-12.0); Platelet Count 163 K/mcL (140-440); RBC 4.57 M/mcL (4.00-5.20); Red Cell Distribution Width 14.7 % (11.5-14.5); WBC 15.9 K/mcL (4.5-11.0)
[2020-11-26] MEDS ORDERED: DEXAMETHASONE 10 MG/ML VIAL ONE (09:08)
[2020-11-26] MEDS ORDERED: fentaNYL 100 MCG/2 ML VIAL IV ONE ×2 (09:08→09:54)
[2020-11-26] MEDS ORDERED: ONDANSETRON 4 MG/2 ML VIAL ONE (09:08)
[2020-11-26] MEDS ORDERED: KETAMINE 100 MG/ML ML ONE (09:08)
[2020-11-26] MEDS ORDERED: PROPOFOL 200 MG/20 ML VIAL IV ONE (09:08)
[2020-11-26] MEDS ORDERED: LIDOCAINE HCL/PF 100 MG/5 ML SYRINGE IV ONE (09:08)
[2020-11-26] MEDS ORDERED: OPIUM/BELLADONNA ALKALOIDS 60 MG SUPP.RECT PR PRN (09:29)
[2020-11-26] MEDS ORDERED: MEPERIDINE 25 MG/ML VIAL IV PRN (09:29)
[2020-11-26] MEDS ORDERED: ACETAMINOPHEN 1,000 MG/100 ML BAG IV ONE (09:29)
[2020-11-26] MEDS ORDERED: BENZOCAINE/MENTHOL 1 LOZENGE PO PRN (09:29)
[2020-11-26] MEDS ORDERED: IPRATROPIUM/ALBUTEROL 3 ML AMPUL.NEB NEB PRN (09:29)
[2020-11-26] MEDS ORDERED: KETOROLAC 15 MG/ML VIAL IV PRN (09:29)
[2020-11-26] MEDS ORDERED: LACTATED RINGERS 1,000 ML IV SCH (09:30)
--- NOTE | 2020-11-26 09:42 | Operative Note ---
Operative Note Operative Note: Operation report Preop diagnosis: Left hydronephrosis with obstructing left ureteral stone and sepsis Postop diagnosis same Procedure: Left ureteral stone pushback with stent placement and additional procedure fluoroscopy Surgeon: Dr. Raghavendra Gonzalez Anesthesia: General with Dr. Padron Drains: 6 x 24 cm double-J stent left side no suture per urethra--14 [place] Bergman catheter straight drainage Complications: None Additional procedure--fluoroscopy Description: After placement under general anesthesia patient was repositioned in the dorsal thigh position and Bergman catheter removed. Patient had a cystoscopy performed in mild to moderate cystitis noted. Patient had left ureteral orifice cannulated with a o.35 Glidewire and stone was bypassed with coiling in the left renal pelvis. Patient had a 6 x 24 cm double-J stent placed under fluoroscopic assist Control and reflux of cloudy urine was noted upon bypassing the stone. Patient had suture removed and bladder drained with Bergman catheter after assurance of good positioning fluoroscopically and cystoscopically. Patient was returned to the recovery area in stable condition entire procedure well Patient will require second stage ureteroscopy likely holmium laser lithotripsy once infection cleared and medically stable
[2020-11-26] MEDS: fentaNYL 100 MCG/2 ML VIAL IV PRN ×2 (09:56→09:59)
--- NOTE | 2020-11-26 10:47 | XRay Report ---
CLINICAL INFORMATION: ureteroscopy with stent placement COMPARISON: Abdomen and pelvic CT 11/25/2020 FINDINGS: Digital images from the OR show proximal end of a left double pigtail ureteral stent. It overlies the expected location of the superior calyx. The distal end of the stent was not included on the film IMPRESSION: Proximal end of a left ureteral double pigtail catheter overlies superior calyx of the left kidney. Interpreted and Authenticated by: Johny Chavez 11/26/20
[2020-11-26 13:07] LABS: Hemoglobin A1C 8.4 % Hgb (4.0-6.0)
[2020-11-26] MEDS: 0.9 % SODIUM CHLORIDE 10 ML SYRINGE IV SCH ×2 (13:28→21:37)
[2020-11-26] MEDS: PIPERACILLIN SODIUM/TAZOBACTAM 4.5 GM in DEXTROSE 5% IN WATER 50 ML IV SCH ×2 (13:56→21:38)
[2020-11-26] MEDS: HYDROmorphone 0.5 MG/0.5 ML SYRINGE IV PRN ×2 (13:57→17:10)
[2020-11-26] MEDS: TAMSULOSIN 0.4 MG CAPSULE PO SCH (21:37)
[2020-11-26] MEDS: ENOXAPARIN 30 MG/0.3 ML SYRINGE SQ SCH (21:37)
[2020-11-27] MEDS: 0.9 % SODIUM CHLORIDE 10 ML SYRINGE IV SCH ×3 (06:02→20:56)
[2020-11-27] MEDS: INSULIN LISPRO 1 UNIT/0.01 ML UNIT SQ SCH ×4 (07:02→20:09)
[2020-11-27 07:05] LABS: Basophils # (Auto) 0.01 K/mcL (0.00-0.20); Basophils % (Auto) 0.1 % (0.0-2.0); Eosinophils # (Auto) 0 K/mcL (0.00-0.70); Eosinophils % (Auto) 0 % (0.0-7.0); Hematocrit 45.2 % (36.0-48.0); Hemoglobin 14.2 g/dL (12.0-15.0); Lymphocytes # (Auto) 1.61 K/mcL (1.50-4.80); Mean Corpuscular HGB Conc 31.4 g/dL (31.0-36.0); Mean Platelet Volume 11.2 fL (7.4-10.4); Monocytes # (Auto) 0.64 K/mcL (0.10-0.90); Monocytes % (Auto) 5.9 % (1.0-12.0); Platelet Count 160 K/mcL (140-440); RBC 4.81 M/mcL (4.00-5.20); Red Cell Distribution Width 14.2 % (11.5-14.5); WBC 10.8 K/mcL (4.5-11.0)
--- NOTE | 2020-11-27 07:07 | Internal Med Progress Note ---
SUBJECTIVE Subjective Patient information: Note initiated : 11/27/20 at 7:04 am Service Date, if different from initiated Date: [] Patient: Tiny Banuelos 89 y/o F admitted on 11/26/20 for flank pain. Chief Complaint: [] Interval history: History of present illness: Ms. Banuelos is a 89 year old F Who presents to the ED with left-sided pain sharp for 3 days. Continue to worsen as well as having malodorous urine as well as nausea and vomiting. Work-up in the ED showed a stone in the left side with medical findings consistent with pyelonephritis. Dr. Gonzalez was contacted. Patient started on antibiotics IV fluids. Lactate was mildly elevated 2.6. Blood cultures drawn. No fevers or chills chest pain or shortness of breath. Patient has low blood pressure baseline per report. 11/27 No overnight event or new complaints. Urine culture. Urology following. Leukocytosis resolved. Hyponatremia this morning. Review of Systems: denies headache/fever/chills/nausea/vomiting/chest or abdominal pain/cough/dyspnea/diarrhea. Otherwise see above. Constitutional Vitals: Vital Signs Temp Pulse Resp BP Pulse Ox 97.1 F 69 16 134/83 93 11/27/20 02:37 11/27/20 02:37 11/27/20 02:37 11/27/20 02:37 11/27/20 02:37 Period Temp Pulse Resp BP Sys/Philippe Pulse Ox Last 24 Hr 96.8 F-97.9 F 57-81 10-16 97-156/49-91 90-100 Intake and Output 11/26/20 11/27/20 11/27/20 21:59 05:59 13:59 Intake Total 2049 700 Output Total 200 325 Balance 1850 375 Weight 138.572 kg Intake & Output: Intake & Output 11/26/20 11/27/20 11/27/20 21:59 05:59 13:59 Intake Total 2049 700 Output Total 200 325 Balance 1850 375 Weight 138.572 kg Intake: IV 0 Sodium Chloride 0.9% 1,000 ml @ 1000 75 mls/hr IV .[id number] [facility] Rx#: [id number] Lactated Ringers 1,000 ml @ 20 1000 mls/hr IV .Q24H [facility] Rx#: [id number] Zosyn 4.5 gm In Dextrose 5% in 50 Water 50 ml @ 100 mls/hr IV Q8H [facility] Rx#:[id number] Oral 700 Output: Urine Catheter Amount 200 325 Other: Urine Appearance Clear Urine Color Blood Tinged Light Cassandra Tea Colored Exam: General: Alert, Awake, No acute Distress, obese Eyes/N/T: EOMI, Head/Neck: neck supple, CV: RRR, No murmurs, Pulm: Clear b/l, no wheezing/rhonchi/rales Abd: soft, nontender, +BS x4 Ext: no clubbing/cyanosis, chronic b/l LE lymphedema Neuro: Alert, no focal deficits, moves all extremities, Skin: warm/dry OBJ DATA Labs CBC & Chem 7: 11/27/20 05:22 11/27/20 05:22 Labs: Abnormal Lab Results 11/26/20 11/26/20 11/26/20 05:18 05:18 05:18 WBC 15.9 H RDW 14.7 H MPV 10.6 H Neut % (Auto) Lymph % (Auto) 13.3 L Lymph # (Auto) Lee # (Auto) 1.30 H Absolute Neutrophils 12.44 H PT 14.8 H VBG Lactic Acid Glucose Hemoglobin A1c 8.4 H Total Bilirubin AST Urine Appearance Urine Protein Urine Ketones Urine Occult Blood Urine Nitrate Ur Leukocyte Esterase Urine RBC Urine WBC Urine Bacteria Urine Mucus 11/25/20 11/25/20 11/25/20 20:52 18:17 18:17 WBC 15.8 H RDW MPV Neut % (Auto) 92.1 H Lymph % (Auto) 3.7 L Lymph # (Auto) 0.58 L Lee # (Auto) Absolute Neutrophils 14.57 H PT VBG Lactic Acid Glucose 211 H Hemoglobin A1c Total Bilirubin 1.1 H AST 37 H Urine Appearance Cloudy A Urine Protein 30 A Urine Ketones 5 A Urine Occult Blood >=1.0 A Urine Nitrate Pos A Ur Leukocyte Esterase 250 A Urine RBC 76 H Urine WBC 178 H Urine Bacteria Many A Urine Mucus Many A 11/25/20 18:16 WBC RDW MPV Neut % (Auto) Lymph % (Auto) Lymph # (Auto) Lee # (Auto) Absolute Neutrophils PT VBG Lactic Acid 2.6 H Glucose Hemoglobin A1c Total Bilirubin AST Urine Appearance Urine Protein Urine Ketones Urine Occult Blood Urine Nitrate Ur Leukocyte Esterase Urine RBC Urine WBC Urine Bacteria Urine Mucus Meds: Medications Acetaminophen (Acetaminophen 325 Mg Tablet) 650 mg PO Q4-6HP PRN; Protocol PRN Reason: Per Pain Protocol Dextrose (Dextrose 50% 50 Ml Vial) 0 ml IV UD PRN PRN Reason: Hypoglycemia Diagnostic Test (Pha) (Accu-Chek 1 Each Strip) 1 each FS [facility] Last Admin: 11/27/20 07:02 Dose: 1 each Documented by: Enoxaparin Sodium (Enoxaparin 30 Mg/0.3 Ml Syringe) 30 mg SQ BID [facility] Last Admin: 11/26/20 21:37 Dose: 30 mg Documented by: Glucose (Dextrose 31 Gm Oral.Susp) 15 gm PO PRN PRN PRN Reason: Hypoglycemia Hydromorphone HCl (Hydromorphone 0.5 Mg/0.5 Ml Syringe) 0.5 mg IV Q4HP PRN; Protocol PRN Reason: Per Pain Protocol Last Admin: 11/26/20 17:10 Dose: 0.5 mg Documented by: Ceftriaxone Sodium 2 gm/ (Dextrose) 50 mls @ 100 mls/hr IV Q24H [facility]; Protocol Insulin Glargine (Insulin Glargine, Human 1 Unit/0.01 Ml) 56 unit SQ QDAY [facility] Insulin Human Lispro (Insulin Lispro 1 Unit/0.01 Ml Unit) 0 unit SQ [facility]; Protocol Last Admin: 11/27/20 07:02 Dose: 6 units Documented by: Lactobacillus Rhamnosus (Lactobacillus 1 Capsule) 1 cap PO QDAY [facility] Ondansetron HCl (Ondansetron 4 Mg/2 Ml Vial) 4 mg IV Q6HP PRN PRN Reason: Nausea And Vomiting Last Admin: 11/26/20 10:55 Dose: 4 mg Documented by: Ondansetron HCl (Ondansetron 4 Mg/2 Ml Vial) 4 mg IV Q6HP PRN; Protocol PRN Reason: Nausea And Vomiting Sodium Chloride (0.9 % Sodium Chloride 10 Ml Syringe) 10 ml IV Q8 [facility] Last Admin: 11/27/20 06:02 Dose: 10 ml Documented by: Tamsulosin HCl (Tamsulosin 0.4 Mg Capsule) 0.4 mg PO HS [facility] Last Admin: 11/26/20 21:37 Dose: 0.4 mg Documented by: A/P Narrative A/P Narrative: A: *Left Hydronephrosis/hydroureter from obstructing stone: s/p stent (11/26) *UTI: *SIRS/?Sepsis: improving *Obesity: *DM: A1c 8.4 *chronic lymphedema/venous stasis P: -Urologist following, second stage ureteroscopy when infection cleared -Rocephin, pending UC/BC -basal and SSI -pt/ot -CM for placement needs -comp wraps -ppx: lovenox bid for obesity (SCD until seen by surgery) DNR Time Spent With Patient Time: Total time spent is greater than 50% in coordination of care (as documented) at patient's floor/unit and/or counseling patient: QUALITY VTE Deep Vein Thrombosis/Pulmonary Embolism Present on Admission: No
--- NOTE | 2020-11-27 07:53 | General Surgery Progress Note ---
SUBJECTIVE Subjective Patient information: Note initiated : 11/27/20 at 7:50 am Service Date, if different from initiated Date: [] Patient: Tiny Banuelos 89 y/o F admitted on 11/26/20 for flank pain. Chief Complaint: [] Interval history: Patient presently doing well with no new symptoms and no nausea reported Tolerating statin well Constitutional Vitals: Vital Signs Temp Pulse Resp BP Pulse Ox 97.1 F 69 16 134/83 93 11/27/20 02:37 11/27/20 02:37 11/27/20 02:37 11/27/20 02:37 11/27/20 02:37 Period Temp Pulse Resp BP Sys/Philippe Pulse Ox Last 24 Hr 96.8 F-97.9 F 57-81 10-16 97-156/49-91 90-100 Intake and Output 11/26/20 11/27/20 11/27/20 21:59 05:59 13:59 Intake Total 2050 700 Output Total 200 325 Balance 1850 375 Weight 305 lb 8 oz Intake & Output: Intake & Output 11/26/20 11/27/20 11/27/20 21:59 05:59 13:59 Intake Total 2050 700 Output Total 200 325 Balance 1850 375 Weight 305 lb 8 oz Intake: IV 2050 Sodium Chloride 0.9% 1,000 ml @ 1000 75 mls/hr IV .[id number] [facility] Rx#: [id number] Lactated Ringers 1,000 ml @ 20 1000 mls/hr IV .Q24H [facility] Rx#: [id number] Zosyn 4.5 gm In Dextrose 5% in 50 Water 50 ml @ 100 mls/hr IV Q8H [facility] Rx#:[id number] Oral 700 Output: Urine Catheter Amount 200 325 Other: Urine Appearance Clear Urine Color Blood Tinged Light Cassandra Tea Colored Additional findings Additional findings: Nontoxic and resting comfortably HEENT within normal notes Abdomen soft Minimal CVA tenderness Bergman draining clear urine A/P Narrative A/P Narrative: Pending labs patient continues to do well with white count returned to normal We will have catheter out today and await urine culture results for determination of hopefully oral antibiotic options and plan for secondary procedure once medically stable and UTI adequately treated We will continue to follow Time Spent With Patient Time: Total time spent is greater than 50% in coordination of care (as documented) at patient's floor/unit and/or counseling patient:
[2020-11-27 07:54] LABS: ALT/SGPT 24 U/L (<40); AST/SGOT 35 U/L (<32); Albumin 3.2 gm/dL (3.2-5.2); Albumin/Globulin Ratio 0.9 (1.0-2.3); Alkaline Phosphatase 96 U/L (39-117); Bilirubin,Direct 0.4 mg/dL (<0.3); Bilirubin,Total 0.7 mg/dL (0.1-1.0); Blood Urea Nitrogen 14 mg/dL (8-23); Calcium 8.8 mg/dL (8.6-10.4); Carbon Dioxide 21 mmol/L (22-30); Chloride 95 mmol/L (96-108); Globulin 3.5 gm/dL (2.2-3.7); Glomerular Filtration Rate 66; Glucose 272 mg/dL (70-105); Lactate Dehydrogenase 251 U/L (135-225); Phosphorous 3.3 mg/dL (2.5-4.5); Triglycerides 75 mg/dL (<150); Uric Acid 4.9 mg/dL (2.5-8.0)
[2020-11-27] MEDS: LACTOBACILLUS 1 CAPSULE PO SCH (08:45)
[2020-11-27] MEDS: INSULIN GLARGINE, HUMAN 1 UNIT/0.01 ML SQ SCH (08:45)
[2020-11-27] MEDS: ENOXAPARIN 30 MG/0.3 ML SYRINGE SQ SCH ×2 (08:46→20:08)
[2020-11-27] MEDS: cefTRIAXone 2 GM in DEXTROSE 5% IN WATER 50 ML IV SCH (09:15)
[2020-11-27] MEDS ORDERED: FUROSEMIDE 40 MG/4 ML VIAL IV ONE (09:17)
--- NOTE | 2020-11-27 12:09 | Discharge Summary ---
Discharge Provider Provider Patient information: Note initiated : 11/27/20 at 12:08 pm Service Date, if different from initiated Date: [] Patient: Tiny Banuelos 89 y/o F admitted on 11/26/20 for flank pain. Chief Complaint: [] Date of admission: 11/26/20 00:25 Primary care physician: Red Love DO Consults: 11/25/20 23:45 Consult to Physician [CONS] Routine Comment: Consulting Provider: Carmine Baez Reason For Exam: Physician to Consult 11/26/20 03:21 Consult to Physician [CONS] Routine Comment: Consulting Provider: Raghavendra Gonzalez Reason For Exam: Physician to Consult Discharge Meds Discharge Medications Home Medications aspirin 81 mg tablet,delayed release 81 mg PO QDAY 12/27/18 [History Confirmed 11/25/20 Last Taken Unknown] cholecalciferol (vitamin D3) 125 mcg (5,000 unit) tablet 5,000 unit PO QDAY 12/27/18 [History Confirmed 11/25/20 Last Taken Unknown] coenzyme Q10 10 mg capsule 10 mg PO QDAY cap 12/27/18 [History Confirmed 11/25/20 Last Taken Unknown] cranberry 500 mg capsule 500 mg PO QDAY cap 12/27/18 [History Confirmed 11/25/20 Last Taken Unknown] insulin glargine 100 unit/mL subcutaneous solution See Rx Instructions SUB-Q QDAY 12/27/18 [History Confirmed 11/25/20 Last Taken Unknown] medical compression stockings 1 dose MISCELLANE DAILY 12/27/18 [History Confirmed 11/25/20 Last Taken Unknown] meloxicam 15 mg tablet 15 mg PO QDAY 12/27/18 [History Confirmed 11/25/20 Last Taken Unknown] multivitamin 1 tab PO QDAY 12/27/18 [History Confirmed 11/25/20 Last Taken Unknown] omega-3 fatty acids 350 mg PO QDAY 12/27/18 [History Confirmed 11/25/20 Last Taken Unknown] conjugated estrogens 0.625 mg/gram vaginal cream 0.3125 mg VAGINAL QDAY #30 g 08/17/19 [Rx Confirmed 11/25/20 Last Taken Unknown] lactobacillus combination no.8 3 billion cell capsule 3,000 mmu cells PO QDAY 08/17/19 [History Confirmed 11/25/20 Last Taken Unknown] ondansetron 4 mg PO Q6H PRN #20 tab 07/08/20 [Rx Confirmed 11/25/20 Last Taken Unknown] levofloxacin 750 mg PO Q24H #3 tab 11/28/20 [Rx Last Taken Unknown] COURSE Hospital Course Hospital course: History of present illness: Ms. Banuelos is a 89 year old F Who presents to the ED with left-sided pain sharp for 3 days. Continue to worsen as well as having malodorous urine as well as nausea and vomiting. Work-up in the ED showed a stone in the left side with medical findings consistent with pyelonephritis. Dr. Gonzalze was contacted. Patient started on antibiotics IV fluids. Lactate was mildly elevated 2.6. Blood cultures drawn. No fevers or chills chest pain or shortness of breath. Patient has low blood pressure baseline per report. 11/27 No overnight event or new complaints. Urine culture. Urology following. Leukocytosis resolved. Hyponatremia this morning. 11/28 Patient complains of some back spasming today. No overnight events or new complaints. Awaiting final urine cultures. Awaiting follow-up labs. A: *Left Hydronephrosis/hydroureter from obstructing stone: s/p stent (11/26) *complicated UTI (GNB): *Sepsis: improved *Obesity: *DM: A1c 8.4 *chronic lymphedema/venous stasis Discharge diagnosis: Obstructive uropathy UTI sepsis Secondary discharge diagnosis: Obesity diabetes chronic edema Time Spent with Patient Time attestation: Total time spent providing and/or coordinating discharge services: Time spent: Greater than 30 minutes EXAM Constitutional Vitals: Temp Pulse Resp BP Pulse Ox 96.6 F L 58 L 16 124/78 95 11/27/20 08:56 11/27/20 08:56 11/27/20 08:56 11/27/20 08:56 11/27/20 08:56 Discharge Data Data Completed and Pending Labs on day of discharge: Labs from last 24 hours 11/27/20 11/27/20 11/27/20 05:22 05:22 05:22 WBC 10.8 RBC 4.81 Hgb 14.2 Hct 45.2 MCV 94.0 MCH 29.5 MCHC 31.4 RDW 14.2 Plt Count 160 MPV 11.2 H Neut % (Auto) 79.0 H Lymph % (Auto) 15.0 [place] % (Auto) 5.9 Eos % (Auto) 0 Baso % (Auto) 0.1 Lymph # (Auto) 1.61 [place] # (Auto) 0.64 Eos # (Auto) 0 Baso # (Auto) 0.01 Absolute Neutrophils 8.50 H Sodium 129 L Pending Potassium 5.0 Pending Chloride 95 L Pending Carbon Dioxide 21 L Pending Anion Gap 13.0 Pending BUN 14 Pending Creatinine 0.8 Pending GFR Calculation 66 Pending Glucose 272 H Pending Hemoglobin A1c Estim Average Glucose Uric Acid 4.9 Calcium 8.8 Pending Phosphorus 3.3 Magnesium 2.2 Total Bilirubin 0.7 Direct Bilirubin 0.4 H GGT 120 H AST 35 H ALT 24 Alkaline Phosphatase 96 Lactate Dehydrogenase 251 H Total Protein 6.7 Albumin 3.2 Globulin 3.5 Albumin/Globulin Ratio 0.9 L Triglycerides 75 11/26/20 05:18 WBC RBC Hgb Hct MCV MCH MCHC RDW Plt Count MPV Neut % (Auto) Lymph % (Auto) [place] % (Auto) Eos % (Auto) Baso % (Auto) Lymph # (Auto) [place] # (Auto) Eos # (Auto) Baso # (Auto) Absolute Neutrophils Sodium Potassium Chloride Carbon Dioxide Anion Gap BUN Creatinine GFR Calculation Glucose Hemoglobin A1c 8.4 H Estim Average Glucose 194 Uric Acid Calcium Phosphorus Magnesium Total Bilirubin Direct Bilirubin GGT AST ALT Alkaline Phosphatase Lactate Dehydrogenase Total Protein Albumin Globulin Albumin/Globulin Ratio Triglycerides Preliminary micro results at discharge 11/25/20 20:48 Blood Culture - Preliminary Blood 11/25/20 20:42 Blood Culture - Preliminary Blood Discharge Plan Patient/Caregiver Discharge Instructions Prescriptions: New levofloxacin 750 mg tablet 750 mg PO Q24H Qty: 3 RF: 0 Continued meloxicam 15 mg tablet 15 mg PO QDAY RF: 0 Lantus U-100 Insulin 100 unit/mL solution See Rx Instructions SUB-Q QDAY RF: 0 aspirin 81 mg tablet,delayed release (DR/EC) 81 mg PO QDAY RF: 0 cranberry 500 mg capsule 500 mg PO QDAY RF: 0 coenzyme Q10 [Co Q-10] 10 mg capsule 10 mg PO QDAY RF: 0 omega-3 fatty acids 350 mg PO QDAY RF: 0 multivitamin tablet 1 tab PO QDAY RF: 0 cholecalciferol (vitamin D3) 5,000 unit tablet 5,000 unit tablet 5,000 unit PO QDAY RF: 0 medical compression stockings 1 dose MISCELLANE DAILY RF: 0 lactobacillus combination no.8 3 billion cell capsule 3 billion cell capsule 3,000 mmu cells PO QDAY RF: 0 Premarin 0.625 mg/gram cream 0.3125 mg VAGINAL QDAY Qty: 30 RF: 6 ondansetron 4 mg tablet,disintegrating 4 mg PO Q6H PRN (Reason: nausea and vomiting) Qty: 20 RF: 0 Discontinued levofloxacin 500 mg tablet 500 mg PO QDAY Qty: 4 RF: 0 amoxicillin-pot clavulanate [Augmentin] 875-125 mg tablet 1 tab PO BID Qty: 14 RF: 0 Follow Up Plan Follow up with: Raghavendra Gonzalez MD [Physician] - Red Love DO [Primary Care Provider] - Patient Disposition: Xfer SNF Prognosis: Fair Rehab Potential: Fair I certify that the patient requires SNF services: Yes Overall status at discharge: patient is progressing back to baseline QUALITY VTE Deep Vein Thrombosis/Pulmonary Embolism Present on Admission: No
[2020-11-27] MEDS: TAMSULOSIN 0.4 MG CAPSULE PO SCH (20:09)
[2020-11-28] MEDS: HYDROmorphone 0.5 MG/0.5 ML SYRINGE IV PRN (04:25)
[2020-11-28] MEDS: 0.9 % SODIUM CHLORIDE 10 ML SYRINGE IV SCH ×3 (04:25→21:32)
[2020-11-28] MEDS: INSULIN LISPRO 1 UNIT/0.01 ML UNIT SQ SCH ×4 (08:00→20:39)
[2020-11-28] MEDS: cefTRIAXone 2 GM in DEXTROSE 5% IN WATER 50 ML IV SCH (08:47)
[2020-11-28] MEDS: LACTOBACILLUS 1 CAPSULE PO SCH (08:47)
[2020-11-28] MEDS: ENOXAPARIN 30 MG/0.3 ML SYRINGE SQ SCH ×2 (08:48→21:19)
[2020-11-28] MEDS: INSULIN GLARGINE, HUMAN 1 UNIT/0.01 ML SQ SCH (08:48)
--- NOTE | 2020-11-28 08:51 | Internal Med Progress Note ---
SUBJECTIVE Subjective Patient information: Note initiated : 11/28/20 at 8:48 am Service Date, if different from initiated Date: [] Patient: Tiny Banuelos 89 y/o F admitted on 11/26/20 for flank pain. Chief Complaint: [] Interval history: History of present illness: Ms. Banuelos is a 89 year old F Who presents to the ED with left-sided pain sharp for 3 days. Continue to worsen as well as having malodorous urine as well as nausea and vomiting. Work-up in the ED showed a stone in the left side with medical findings consistent with pyelonephritis. Dr. Gonzalez was contacted. Patient started on antibiotics IV fluids. Lactate was mildly elevated 2.6. Blood cultures drawn. No fevers or chills chest pain or shortness of breath. Patient has low blood pressure baseline per report. 11/27 No overnight event or new complaints. Urine culture. Urology following. Leukocytosis resolved. Hyponatremia this morning. 11/28 Patient complains of some back spasming today. No overnight events or new complaints. Awaiting final urine cultures. Awaiting follow-up labs. Review of Systems: denies headache/fever/chills/nausea/vomiting/chest or abdominal pain /cough/dyspnea/diarrhea. Otherwise see above. Constitutional Vitals: Vital Signs Temp Pulse Resp BP Pulse Ox 97.4 F 60 14 113/66 92 11/28/20 07:10 11/28/20 07:10 11/28/20 07:10 11/28/20 07:10 11/28/20 07:10 Period Temp Pulse Resp BP Sys/Philippe Pulse Ox Last 24 Hr 96.6 F-97.4 F 58-70 14-18 113-136/66-82 91-97 Intake and Output 11/27/20 11/28/20 11/28/20 21:59 05:59 13:59 Intake Total 730 350 Output Total 1975 10 Balance -1246 348 Weight 140.931 kg Intake & Output: Intake & Output 11/27/20 11/28/20 11/28/20 21:59 05:59 13:59 Intake Total 730 350 Output Total 1975 2 Balance -1246 348 Weight 140.931 kg Intake: Oral 730 350 Output: Urine Catheter Amount 1974 # of times incontinent of urine 1 2 Other: Meal Dinner Percent of Meal Consumed 100% Feeding Ability Independent Urine Appearance Clear Urine Color Bright Yellow Exam: General: Alert, Awake, No acute Distress, obese Eyes/N/T: EOMI, Head/Neck: neck supple, CV: RRR, No murmurs, Pulm: Clear b/l, no wheezing/rhonchi/rales Abd: soft, nontender, +BS x4 Ext: no clubbing/cyanosis, chronic b/l LE lymphedema Neuro: Alert, no focal deficits, moves all extremities, Skin: warm/dry OBJ DATA Labs CBC & Chem 7: 11/27/20 05:22 11/28/20 05:17 Labs: Abnormal Lab Results 11/27/20 11/27/20 11/26/20 05:22 05:22 05:18 WBC RDW MPV 11.2 H Neut % (Auto) 79.0 H Lymph % (Auto) Lymph # (Auto) [place] # (Auto) Absolute Neutrophils 8.50 H PT VBG Lactic Acid Sodium 129 L Chloride 95 L Carbon Dioxide 21 L Glucose 272 H Hemoglobin A1c 8.4 H Total Bilirubin Direct Bilirubin 0.4 H GGT 120 H AST 35 H Lactate Dehydrogenase 251 H Albumin/Globulin Ratio 0.9 L Urine Appearance Urine Protein Urine Ketones Urine Occult Blood Urine Nitrate Ur Leukocyte Esterase Urine RBC Urine WBC Urine Bacteria Urine Mucus 11/26/20 11/26/20 11/25/20 05:18 05:18 20:52 WBC 15.9 H RDW 14.7 H MPV 10.6 H Neut % (Auto) Lymph % (Auto) 13.3 L Lymph # (Auto) [place] # (Auto) 1.30 H Absolute Neutrophils 12.44 H PT 14.8 H VBG Lactic Acid Sodium Chloride Carbon Dioxide Glucose Hemoglobin A1c Total Bilirubin Direct Bilirubin GGT AST Lactate Dehydrogenase Albumin/Globulin Ratio Urine Appearance Cloudy A Urine Protein 30 A Urine Ketones 5 A Urine Occult Blood >=1.0 A Urine Nitrate Pos A Ur Leukocyte Esterase 250 A Urine RBC 76 H Urine WBC 178 H Urine Bacteria Many A Urine Mucus Many A 11/25/20 11/25/20 11/25/20 18:17 18:17 18:16 WBC 15.8 H RDW MPV Neut % (Auto) 92.1 H Lymph % (Auto) 3.7 L Lymph # (Auto) 0.58 L [place] # (Auto) Absolute Neutrophils 14.57 H PT VBG Lactic Acid 2.6 H Sodium Chloride Carbon Dioxide Glucose 211 H Hemoglobin A1c Total Bilirubin 1.1 H Direct Bilirubin GGT AST 37 H Lactate Dehydrogenase Albumin/Globulin Ratio Urine Appearance Urine Protein Urine Ketones Urine Occult Blood Urine Nitrate Ur Leukocyte Esterase Urine RBC Urine WBC Urine Bacteria Urine Mucus Meds: Medications Acetaminophen (Acetaminophen 325 Mg Tablet) 650 mg PO Q4-6HP PRN; Protocol PRN Reason: Per Pain Protocol Dextrose (Dextrose 50% 50 Ml Vial) 0 ml IV UD PRN PRN Reason: Hypoglycemia Diagnostic Test (Pha) (Accu-Chek 1 Each Strip) 1 each FS [facility] Last Admin: 11/28/20 08:00 Dose: 1 each Documented by: Enoxaparin Sodium (Enoxaparin 30 Mg/0.3 Ml Syringe) 30 mg SQ BID [facility] Last Admin: 11/27/20 20:08 Dose: 30 mg Documented by: Glucose (Dextrose 31 Gm Oral.Susp) 15 gm PO PRN PRN PRN Reason: Hypoglycemia Hydromorphone HCl (Hydromorphone 0.5 Mg/0.5 Ml Syringe) 0.5 mg IV Q4HP PRN; Protocol PRN Reason: Per Pain Protocol Last Admin: 11/28/20 04:25 Dose: 0.5 mg Documented by: Ceftriaxone Sodium 2 gm/ (Dextrose) 50 mls @ 100 mls/hr IV Q24H [facility]; Protocol Last Infusion: 11/27/20 10:00 Dose: Infused Documented by: Insulin Glargine (Insulin Glargine, Human 1 Unit/0.01 Ml) 56 unit SQ QDAY [facility] Last Admin: 11/27/20 08:45 Dose: 56 units Documented by: Insulin Human Lispro (Insulin Lispro 1 Unit/0.01 Ml Unit) 0 unit SQ [facility]; Protocol Last Admin: 11/28/20 08:00 Dose: 4 units Documented by: Lactobacillus Rhamnosus (Lactobacillus 1 Capsule) 1 cap PO QDAY [facility] Last Admin: 11/27/20 08:45 Dose: 1 cap Documented by: Ondansetron HCl (Ondansetron 4 Mg/2 Ml Vial) 4 mg IV Q6HP PRN PRN Reason: Nausea And Vomiting Last Admin: 11/26/20 10:55 Dose: 4 mg Documented by: Ondansetron HCl (Ondansetron 4 Mg/2 Ml Vial) 4 mg IV Q6HP PRN; Protocol PRN Reason: Nausea And Vomiting Sodium Chloride (0.9 % Sodium Chloride 10 Ml Syringe) 10 ml IV Q8 [facility] Last Admin: 11/28/20 04:25 Dose: 10 ml Documented by: Tamsulosin HCl (Tamsulosin 0.4 Mg Capsule) 0.4 mg PO HS [facility] Last Admin: 11/27/20 20:09 Dose: 0.4 mg Documented by: A/P Narrative A/P Narrative: A: *Left Hydronephrosis/hydroureter from obstructing stone: s/p stent (11/26) *UTI (GNB): *SIRS/?Sepsis: improved *Obesity: *DM: A1c 8.4 *chronic lymphedema/venous stasis P: -Urologist following, second stage ureteroscopy when infection cleared -Rocephin, pending UC/BC -basal and SSI -pt/ot -CM for placement needs -comp wraps -ppx: lovenox bid for obesity DNR Time Spent With Patient Time: Total time spent is greater than 50% in coordination of care (as documented) at patient's floor/unit and/or counseling patient: QUALITY VTE Deep Vein Thrombosis/Pulmonary Embolism Present on Admission: No
[2020-11-28] MEDS ORDERED: HYDROmorphone 0.5 MG/0.5 ML SYRINGE IV PRN (08:52)
[2020-11-28] MEDS ORDERED: POLYETHYLENE GLYCOL 3350 17 GM PACKET PO ONE (09:05)
[2020-11-28 10:00] LABS: Blood Urea Nitrogen 20 mg/dL (8-23); Carbon Dioxide 29 mmol/L (22-30); Chloride 98 mmol/L (96-108); Glomerular Filtration Rate 77; Glucose 213 mg/dL (70-105)
[2020-11-28] MEDS: ACETAMINOPHEN 325 MG TABLET PO PRN (15:21)
[2020-11-28] MEDS ORDERED: PHENAZOPYRIDINE 200 MG TABLET PO PRN (15:35)
[2020-11-28] MEDS: TAMSULOSIN 0.4 MG CAPSULE PO SCH (21:19)
[2020-11-29] MEDS: 0.9 % SODIUM CHLORIDE 10 ML SYRINGE IV SCH ×3 (04:20→21:12)
[2020-11-29] MEDS: INSULIN LISPRO 1 UNIT/0.01 ML UNIT SQ SCH ×4 (07:20→21:11)
[2020-11-29] MEDS: METHOCARBAMOL 750 MG TABLET PO PRN ×2 (07:28→20:54)
--- NOTE | 2020-11-29 07:55 | General Surgery Progress Note ---
SUBJECTIVE Subjective Patient information: Note initiated : 11/29/20 at 7:52 am Service Date, if different from initiated Date: [] Patient: Tiny Banuelos 89 y/o F admitted on 11/26/20 for flank pain. Chief Complaint: [] Interval history: Patient presently doing well and tolerating stents Patient is ready for discharge and. Drinking well Constitutional Vitals: Vital Signs Temp Pulse Resp BP Pulse Ox 97.3 F 73 16 134/73 94 11/29/20 07:01 11/29/20 07:01 11/29/20 07:01 11/29/20 07:01 11/29/20 07:01 Period Temp Pulse Resp BP Sys/Philippe Pulse Ox Last 24 Hr 97.3 F-97.7 F 67-79 14-18 114-143/65-84 94-98 Intake and Output 11/28/20 11/29/20 11/29/20 21:59 05:59 13:59 Intake Total 480 480 Output Total 2 2 Balance 480 478 -2 Weight 312 lb 11.2 oz Intake & Output: Intake & Output 11/28/20 11/29/20 11/29/20 21:59 05:59 13:59 Intake Total 480 480 Output Total 2 2 Balance 480 478 -2 Weight 312 lb 11.2 oz Intake: Oral 480 480 Output: # of times incontinent of urine 2 2 Other: Meal Lunch Percent of Meal Consumed 100% # Voids 2 Additional findings Additional findings: No CVA tenderness comfortable and abdomen nontender Comfortable with essentially baseline overall status A/P Narrative A/P Narrative: Patient will be provided UTI stone with bypassed by stent presently tolerating well Plan: Agree with hospitalist service and trial of Levaquin is reasonable and hopefully will be tolerable See back in approximately 10 days in office for scheduling of ureteroscopy stent removal along with stone removal likely holmium laser lithotripsy Time Spent With Patient Time: Total time spent is greater than 50% in coordination of care (as documented) at patient's floor/unit and/or counseling patient:
[2020-11-29] MEDS: INSULIN GLARGINE, HUMAN 1 UNIT/0.01 ML SQ SCH (08:37)
[2020-11-29] MEDS: POLYETHYLENE GLYCOL 3350 17 GM PACKET PO SCH (08:37)
[2020-11-29] MEDS: LACTOBACILLUS 1 CAPSULE PO SCH (08:37)
[2020-11-29] MEDS: ENOXAPARIN 30 MG/0.3 ML SYRINGE SQ SCH ×2 (08:38→20:55)
[2020-11-29] MEDS: cefTRIAXone 2 GM in DEXTROSE 5% IN WATER 50 ML IV SCH (08:48)
[2020-11-29] MEDS ORDERED: cefTRIAXone 1 GM in DEXTROSE 5% IN WATER 50 ML IV SCH (10:09)
--- NOTE | 2020-11-29 10:11 | Internal Med Progress Note ---
SUBJECTIVE Subjective Patient information: Note initiated : 11/29/20 at 10:07 am Service Date, if different from initiated Date: [] Patient: Tiny Banuelos 89 y/o F admitted on 11/26/20 for flank pain. Chief Complaint: [] Interval history: History of present illness: Ms. Banuelos is a 89 year old F Who presents to the ED with left-sided pain sharp for 3 days. Continue to worsen as well as having malodorous urine as well as nausea and vomiting. Work-up in the ED showed a stone in the left side with medical findings consistent with pyelonephritis. Dr. Gonzalez was contacted. Patient started on antibiotics IV fluids. Lactate was mildly elevated 2.6. Blood cultures drawn. No fevers or chills chest pain or shortness of breath. Patient has low blood pressure baseline per report. 11/27 No overnight event or new complaints. Urine culture. Urology following. Leukocytosis resolved. Hyponatremia this morning. 11/28 Patient complains of some back spasming today. No overnight events or new complaints. Awaiting final urine cultures. Awaiting follow-up labs. Review of Systems: denies headache/fever/chills/nausea/vomiting/chest or abdominal stew n/cough/dyspnea/diarrhea. Otherwise see above. Constitutional Vitals: Vital Signs Temp Pulse Resp BP Pulse Ox 97.3 F 73 16 134/73 94 11/29/20 07:01 11/29/20 07:01 11/29/20 07:36 11/29/20 07:01 11/29/20 07:01 Period Temp Pulse Resp BP Sys/Philippe Pulse Ox Last 24 Hr 97.3 F-97.7 F 67-79 14-18 114-143/65-84 94-98 Intake and Output 11/28/20 11/29/20 11/29/20 21:59 05:59 13:59 Intake Total 480 480 Output Total 2 2 Balance 480 478 -2 Weight 141.838 kg Intake & Output: Intake & Output 11/28/20 11/29/20 11/29/20 21:59 05:59 13:59 Intake Total 480 480 Output Total 2 2 Balance 480 478 -2 Weight 141.838 kg Intake: Oral 480 480 Output: # of times incontinent of urine 2 2 Other: Meal Lunch Percent of Meal Consumed 100% Urine Appearance Clear Urine Color [place] Urine Odor Strong # Voids 2 Exam: General: Alert, Awake, No acute Distress, obese Eyes/N/T: EOMI, Head/Neck: neck supple, CV: RRR, No murmurs, Pulm: Clear b/l, no wheezing/rhonchi/rales Abd: soft, nontender, +BS x4 Ext: no clubbing/cyanosis, chronic b/l LE lymphedema Neuro: Alert, no focal deficits, moves all extremities, Skin: warm/dry OBJ DATA Labs CBC & Chem 7: 11/27/20 05:22 11/28/20 09:01 Labs: Abnormal Lab Results 11/28/20 11/27/20 11/27/20 09:01 05:22 05:22 MPV 11.2 H Neut % (Auto) 79.0 H Absolute Neutrophils 8.50 H Sodium 129 L Chloride 95 L Carbon Dioxide 21 L Anion Gap 6.0 L Glucose 213 H 272 H Hemoglobin A1c Direct Bilirubin 0.4 H GGT 120 H AST 35 H Lactate Dehydrogenase 251 H Albumin/Globulin Ratio 0.9 L 11/26/20 05:18 MPV Neut % (Auto) Absolute Neutrophils Sodium Chloride Carbon Dioxide Anion Gap Glucose Hemoglobin A1c 8.4 H Direct Bilirubin GGT AST Lactate Dehydrogenase Albumin/Globulin Ratio Meds: Medications Acetaminophen (Acetaminophen 325 Mg Tablet) 650 mg PO Q4-6HP PRN; Protocol PRN Reason: Per Pain Protocol Last Admin: 11/28/20 15:21 Dose: 650 mg Documented by: Dextrose (Dextrose 50% 50 Ml Vial) 0 ml IV UD PRN PRN Reason: Hypoglycemia Diagnostic Test (Pha) (Accu-Chek 1 Each Strip) 1 each FS ACHS [facility] Last Admin: 11/29/20 07:20 Dose: 1 each Documented by: Enoxaparin Sodium (Enoxaparin 30 Mg/0.3 Ml Syringe) 30 mg SQ BID [facility] Last Admin: 11/29/20 08:38 Dose: 30 mg Documented by: Glucose (Dextrose 31 Gm Oral.Susp) 15 gm PO PRN PRN PRN Reason: Hypoglycemia Hydromorphone HCl (Hydromorphone 0.5 Mg/0.5 Ml Syringe) 0.25 - 0.5 mg IV Q4HP PRN; Protocol PRN Reason: Per Pain Protocol Ceftriaxone Sodium 2 gm/ (Dextrose) 50 mls @ 100 mls/hr IV Q24H [facility]; Protocol Last Admin: 11/29/20 08:48 Dose: 100 mls/hr Documented by: Insulin Glargine (Insulin Glargine, Human 1 Unit/0.01 Ml) 56 unit SQ QDAY [facility] Last Admin: 11/29/20 08:37 Dose: 56 units Documented by: Insulin Human Lispro (Insulin Lispro 1 Unit/0.01 Ml Unit) 0 unit SQ ACHS [facility]; Protocol Last Admin: 11/29/20 07:20 Dose: 2 units Documented by: Lactobacillus Rhamnosus (Lactobacillus 1 Capsule) 1 cap PO QDAY [facility] Last Admin: 11/29/20 08:37 Dose: 1 cap Documented by: Methocarbamol (Methocarbamol 750 Mg Tablet) 750 mg PO TIDP PRN PRN Reason: Muscle Spasm Last Admin: 11/29/20 07:28 Dose: 750 mg Documented by: Ondansetron HCl (Ondansetron 4 Mg/2 Ml Vial) 4 mg IV Q6HP PRN PRN Reason: Nausea And Vomiting Last Admin: 11/26/20 10:55 Dose: 4 mg Documented by: Ondansetron HCl (Ondansetron 4 Mg/2 Ml Vial) 4 mg IV Q6HP PRN; Protocol PRN Reason: Nausea And Vomiting Phenazopyridine HCl (Phenazopyridine 200 Mg Tablet) 200 mg PO TIDP PRN PRN Reason: PAINFUL URINATION Last Admin: 11/28/20 15:48 Dose: 200 mg Documented by: Polyethylene Glycol (Polyethylene Glycol 3350 17 Gm Packet) 17 gm PO DAILY [facility] Last Admin: 11/29/20 08:37 Dose: 17 gm Documented by: Sodium Chloride (0.9 % Sodium Chloride 10 Ml Syringe) 10 ml IV Q8 [facility] Last Admin: 11/29/20 04:20 Dose: 10 ml Documented by: Tamsulosin HCl (Tamsulosin 0.4 Mg Capsule) 0.4 mg PO HS [facility] Last Admin: 11/28/20 21:19 Dose: 0.4 mg Documented by: A/P Narrative A/P Narrative: A: *Left Hydronephrosis/hydroureter from obstructing stone: s/p stent (11/26) *complicated UTI (e. coli): *Sepsis: resolved *Obesity: *DM: A1c 8.4 *chronic lymphedema/venous stasis *constipation *Generalized weakness/deconditioning/debility/wheelchair bound: pt was hoping to go home with [facility] today but is requiring more assistance than at baseline with transferring P: -Urologist following, second stage ureteroscopy when infection cleared -Rocephin transition to PO levofloxacin -basal and SSI -pt/ot -bowel regimen -CM for placement to SNF, awaiting -comp wraps -ppx: lovenox bid for obesity DNR Time Spent With Patient Time: Total time spent is greater than 50% in coordination of care (as hayden starr) at patient's floor/unit and/or counseling patient: QUALITY VTE Deep Vein Thrombosis/Pulmonary Embolism Present on Admission: No
[2020-11-29] MEDS ORDERED: FUROSEMIDE 40 MG/4 ML VIAL IV ONE (10:34)
[2020-11-29] MEDS ORDERED: ALBUMIN HUMAN 12.5 GM/50 ML BAG IV ONE (10:34)
--- NOTE | 2020-11-29 12:15 | Internal Med Progress Note ---
SUBJECTIVE Subjective Patient information: Note initiated : 11/30/20 at 12:04 pm Service Date, if different from initiated Date: [] Patient: Tiny Banuelos 89 y/o F admitted on 11/26/20 for flank pain. Chief Complaint: [] Interval history: Ms. Banuelos is a 89 year old female who presents to the ED with left-sided pain sharp for 3 days. Continue to worsen as well as having malodorous urine as well as nausea and vomiting. The ED workup was consistent with a UTI, additional work-up with CT abd/pelvis w/ contrast showed a stone in the left ureter. The clinical and workup was overall consistent with left pyelonephritis. Patient started on antibiotics IV fluids. Lactate was mildly elevated 2.6. Blood cultures drawn. Urology consulted, a left ureteral double-J stent placed on 11/26/20. She will require a second state ureteroscopy and likely holmium laser lithotripsy once the infection has cleared. 11/27 No overnight event or new complaints. Urine culture. Urology following. Leukocytosis resolved. Hyponatremia this morning. 11/28 Patient complains of some back spasms today. No overnight events or new complaints. Awaiting final urine cultures. Awaiting follow-up labs. 11/29 No overnight events. Patient is a weak, generalized. Complains of generalized aches and pains she has chronic pains. She also complains of constipation. Patient was hoping to go home with home health but is requiring 2 person assist to transition from bed to chair. His management working on placement. Urine culture growing E. coli. 11/30 Urine culture growing E coli resistant to fluoroquinolones, sensitive to Bactrim, discontinued Levaquin and started Bactrim. The patient's main complaint is diffuse pain, chronic in nature but worse after poor sleep and uncomfortable situation overall. Had a large bowel movement yesterday after lactulose was started. Just wants to go home but granddaughter wants her to to go to a SNF. Planning to discuss disposition with granddaughter at bedside later today. Constitutional Vitals: Vital Signs Temp Pulse Resp BP Pulse Ox 97.5 F 73 18 127/71 96 11/29/20 11:15 11/29/20 11:15 11/29/20 11:15 11/29/20 11:15 11/29/20 11:15 Period Temp Pulse Resp BP Sys/Philippe Pulse Ox Last 24 Hr 97.3 F-97.7 F 67-79 14-18 114-143/65-84 94-98 Intake and Output 11/28/20 11/29/20 11/29/20 21:59 05:59 13:59 Intake Total 480 480 50 Output Total 2 2 Balance 480 478 48 Weight 141.838 kg Intake & Output: Intake & Output 11/28/20 11/29/20 11/29/20 21:59 05:59 13:59 Intake Total 480 480 50 Output Total 2 2 Balance 480 478 48 Weight 141.838 kg Intake: IV 50 Rocephin 2 gm In Dextrose 5% in 50 Water 50 ml @ 100 mls/hr IV Q24H [facility] Rx#:[id number] Oral 480 480 Output: # of times incontinent of urine 2 2 Other: Meal Lunch Percent of Meal Consumed 100% Urine Appearance Clear Urine Color [place] Urine Odor Strong # Voids 2 Additional findings Additional findings: Head: Atraumatic, normal inspection. Eyes: normal appearance, no scleral icterus. Neck: full ROM Respiratory: no respiratory distress. Cardiovascular: normal rate and rhythm, S1, S2. GI/Abdominal: soft, nontender, no guarding. Extremities: full range of motion, diffusely tender. Neurological: CN II-XII intact, intact motor, intact sensation. Psychiatric: normal mood. Skin: warm, normal color OBJ DATA Labs CBC & Chem 7: 11/27/20 05:22 11/28/20 09:01 Labs: Abnormal Lab Results 11/28/20 11/27/20 11/27/20 09:01 05:22 05:22 MPV 11.2 H Neut % (Auto) 79.0 H Absolute Neutrophils 8.50 H Sodium 129 L Chloride 95 L Carbon Dioxide 21 L Anion Gap 6.0 L Glucose 213 H 272 H Hemoglobin A1c Direct Bilirubin 0.4 H GGT 120 H AST 35 H Lactate Dehydrogenase 251 H Albumin/Globulin Ratio 0.9 L 11/26/20 05:18 MPV Neut % (Auto) Absolute Neutrophils Sodium Chloride Carbon Dioxide Anion Gap Glucose Hemoglobin A1c 8.4 H Direct Bilirubin GGT AST Lactate Dehydrogenase Albumin/Globulin Ratio Meds: Medications Acetaminophen (Acetaminophen 325 Mg Tablet) 650 mg PO Q4-6HP PRN; Protocol PRN Reason: Per Pain Protocol Last Admin: 11/28/20 15:21 Dose: 650 mg Documented by: Dextrose (Dextrose 50% 50 Ml Vial) 0 ml IV UD PRN PRN Reason: Hypoglycemia Diagnostic Test (Pha) (Accu-Chek 1 Each Strip) 1 each FS [facility] Last Admin: 11/29/20 11:06 Dose: 1 each Documented by: Enoxaparin Sodium (Enoxaparin 30 Mg/0.3 Ml Syringe) 30 mg SQ BID [facility] Last Admin: 11/29/20 08:38 Dose: 30 mg Documented by: Glucose (Dextrose 31 Gm Oral.Susp) 15 gm PO PRN PRN PRN Reason: Hypoglycemia Hydromorphone HCl (Hydromorphone 0.5 Mg/0.5 Ml Syringe) 0.25 - 0.5 mg IV Q4HP PRN; Protocol PRN Reason: Per Pain Protocol Insulin Glargine (Insulin Glargine, Human 1 Unit/0.01 Ml) 56 unit SQ QDAY [facility] Last Admin: 11/29/20 08:37 Dose: 56 units Documented by: Insulin Human Lispro (Insulin Lispro 1 Unit/0.01 Ml Unit) 0 unit SQ [facility]; Protocol Last Admin: 11/29/20 11:06 Dose: 2 units Documented by: Lactobacillus Rhamnosus (Lactobacillus 1 Capsule) 1 cap PO QDAY [facility] Last Admin: 11/29/20 08:37 Dose: 1 cap Documented by: Levofloxacin (Levofloxacin 750 Mg Tablet) 750 mg PO DAILY [facility]; Protocol Methocarbamol (Methocarbamol 750 Mg Tablet) 750 mg PO TIDP PRN PRN Reason: Muscle Spasm Last Admin: 11/29/20 07:28 Dose: 750 mg Documented by: Ondansetron HCl (Ondansetron 4 Mg/2 Ml Vial) 4 mg IV Q6HP PRN PRN Reason: Nausea And Vomiting Last Admin: 11/26/20 10:55 Dose: 4 mg Documented by: Ondansetron HCl (Ondansetron 4 Mg/2 Ml Vial) 4 mg IV Q6HP PRN; Protocol PRN Reason: Nausea And Vomiting Phenazopyridine HCl (Phenazopyridine 200 Mg Tablet) 200 mg PO TIDP PRN PRN Reason: PAINFUL URINATION Last Admin: 11/28/20 15:48 Dose: 200 mg Documented by: Polyethylene Glycol (Polyethylene Glycol 3350 17 Gm Packet) 17 gm PO DAILY [facility] Last Admin: 11/29/20 08:37 Dose: 17 gm Documented by: Sodium Chloride (0.9 % Sodium Chloride 10 Ml Syringe) 10 ml IV Q8 [facility] Last Admin: 11/29/20 04:20 Dose: 10 ml Documented by: Tamsulosin HCl (Tamsulosin 0.4 Mg Capsule) 0.4 mg PO HS [facility] Last Admin: 11/28/20 21:19 Dose: 0.4 mg Documented by: A/P Narrative A/P Narrative: Assessment: 89-year-old female admitted for left pyelonephritis occurring in the setting of an obstructing left ureteral stone status post ureteral stent placement. Improved after stent and antibiotic therapy. 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
[2020-11-29] MEDS ORDERED: LACTULOSE 20 GM/30 ML ORAL.SOL PO ONE (14:20)
[2020-11-29] MEDS ORDERED: BISACODYL 10 MG SUPP.RECT PR PRN (14:21)
[2020-11-29] MEDS: TAMSULOSIN 0.4 MG CAPSULE PO SCH (20:55)
[2020-11-29] MEDS: ACETAMINOPHEN 325 MG TABLET PO PRN (20:55)
[2020-11-29] MEDS: LACTULOSE 20 GM/30 ML ORAL.SOL PO SCH (20:56)
[2020-11-30] MEDS: ACETAMINOPHEN 325 MG TABLET PO PRN (01:08)
[2020-11-30] MEDS: 0.9 % SODIUM CHLORIDE 10 ML SYRINGE IV SCH ×3 (04:47→21:02)
[2020-11-30] MEDS: INSULIN LISPRO 1 UNIT/0.01 ML UNIT SQ SCH ×4 (07:39→21:01)
[2020-11-30] MEDS: LACTULOSE 20 GM/30 ML ORAL.SOL PO SCH (08:35)
[2020-11-30] MEDS: METHOCARBAMOL 750 MG TABLET PO PRN ×2 (08:43→17:16)
[2020-11-30] MEDS: LACTOBACILLUS 1 CAPSULE PO SCH (08:43)
[2020-11-30] MEDS: INSULIN GLARGINE, HUMAN 1 UNIT/0.01 ML SQ SCH (08:44)
[2020-11-30] MEDS: ENOXAPARIN 30 MG/0.3 ML SYRINGE SQ SCH ×2 (08:44→21:01)
[2020-11-30] MEDS: POLYETHYLENE GLYCOL 3350 17 GM PACKET PO SCH (08:45)
[2020-11-30] MEDS ORDERED: SULFAMETHOXAZOLE/TRIMETHOPRIM 1 TABLET PO SCH (09:00)
[2020-11-30] MEDS ORDERED: LEVOFLOXACIN 750 MG TABLET PO SCH (09:00)
[2020-11-30] MEDS ORDERED: LACTULOSE 20 GM/30 ML ORAL.SOL PO PRN (09:53)
[2020-11-30] MEDS: MELOXICAM 7.5 MG TABLET PO SCH (10:02)
[2020-11-30] MEDS: ACETAMINOPHEN 500 MG TABLET PO SCH ×2 (10:56→16:30)
--- NOTE | 2020-11-30 11:01 | General Surgery Progress Note ---
SUBJECTIVE Subjective Patient information: Note initiated : 11/30/20 at 10:58 am Service Date, if different from initiated Date: [] Patient: Tiny Banuelos 89 y/o F admitted on 11/26/20 for flank pain. Chief Complaint: [] Interval history: Presently switched to Bactrim DS has not tolerating Levaquin Overall status stable presently with labs reviewed Constitutional Vitals: Vital Signs Temp Pulse Resp BP Pulse Ox 97.5 F 75 20 142/77 97 11/30/20 07:20 11/30/20 04:44 11/30/20 07:20 11/30/20 07:20 11/30/20 07:20 Period Temp Pulse Resp BP Sys/Philippe Pulse Ox Last 24 Hr 97 F-97.6 F 73-97 12-20 110-152/61-88 94-98 Intake and Output 11/29/20 11/30/20 11/30/20 21:59 05:59 13:59 Intake Total 1037 0 Output Total 55 Balance 982 0 Weight 296 lb 6.4 oz Intake & Output: Intake & Output 11/29/20 11/30/20 11/30/20 21:59 05:59 13:59 Intake Total 1037 0 Output Total 55 Balance 982 0 Weight 296 lb 6.4 oz Intake: Oral 1037 0 Output: Void Amount 50 # of times incontinent of urine 5 Other: Meal Dinner Percent of Meal Consumed 0% Urine Appearance Clear Urine Color [place] Urine Odor Normal Stool Size Small Stool Color Brown Stool Consistency Liquid Loose # Voids 2 # Bowel Movements 1 # of times incontinent of 1 Bowels Additional findings Additional findings: Overall stable nontoxic status still relatively immobile in bed No abdominal changes noted on exam today A/P Narrative A/P Narrative: Assessment: Stable on regimen for sepsis and will continue attempts at discharge on oral medication as tolerated Plan: Follow-up in approximately 7 to 10 days for definitive therapy and continue work on constipation as well as overall hydration Time Spent With Patient Time: Total time spent is greater than 50% in coordination of care (as documented) at patient's floor/unit and/or counseling patient:
[2020-11-30] MEDS: CEFUROXIME 500 MG TABLET PO SCH (21:00)
[2020-11-30] MEDS: TAMSULOSIN 0.4 MG CAPSULE PO SCH (21:01)
[2020-12-01] MEDS: ACETAMINOPHEN 500 MG TABLET PO SCH ×3 (01:45→16:58)
[2020-12-01] MEDS: 0.9 % SODIUM CHLORIDE 10 ML SYRINGE IV SCH ×3 (05:22→20:30)
[2020-12-01] MEDS: INSULIN LISPRO 1 UNIT/0.01 ML UNIT SQ SCH ×4 (07:15→20:33)
[2020-12-01] MEDS: POLYETHYLENE GLYCOL 3350 17 GM PACKET PO SCH (08:07)
[2020-12-01] MEDS: CEFUROXIME 500 MG TABLET PO SCH ×2 (08:08→20:30)
[2020-12-01] MEDS: ENOXAPARIN 30 MG/0.3 ML SYRINGE SQ SCH ×2 (08:08→20:30)
[2020-12-01] MEDS: LACTOBACILLUS 1 CAPSULE PO SCH (08:08)
[2020-12-01] MEDS: MELOXICAM 7.5 MG TABLET PO SCH (08:08)
[2020-12-01] MEDS: INSULIN GLARGINE, HUMAN 1 UNIT/0.01 ML SQ SCH (08:08)
--- NOTE | 2020-12-01 11:15 | General Surgery Progress Note ---
SUBJECTIVE Subjective Patient information: Note initiated : 12/01/20 at 11:11 am Service Date, if different from initiated Date: [] Patient: Tiny Banuelos 89 y/o F admitted on 11/26/20 for flank pain. Chief Complaint: [] Interval history: Patient doing well on new antibiotic regimen recovering from sepsis and stone with obstruction Patient was able to get up in the [place] today and is tolerating fluids and diet well Constitutional Vitals: Vital Signs Temp Pulse Resp BP Pulse Ox 97.8 F 80 20 112/64 97 12/01/20 07:46 12/01/20 04:00 12/01/20 07:46 12/01/20 07:46 12/01/20 07:46 Period Temp Pulse Resp BP Sys/Philippe Pulse Ox Last 24 Hr 96.8 F-98.3 F 79-80 16-20 112-137/56-76 94-100 Intake and Output 11/30/20 12/01/20 12/01/20 21:59 05:59 13:59 Intake Total 450 400 Output Total 2 Balance 450 398 Weight 299 lb 6.4 oz Intake & Output: Intake & Output 11/30/20 12/01/20 12/01/20 21:59 05:59 13:59 Intake Total 450 400 Output Total 2 Balance 450 398 Weight 299 lb 6.4 oz Intake: Oral 450 400 Output: # of times incontinent of urine 2 Other: Meal Lunch Percent of Meal Consumed 75% Urine Color Dark Yellow Urine Odor Strong # Bowel Movements 0 Additional findings Additional findings: Comfortable and in no acute distress alert and cooperative Normal diaphragmatic excursion Abdomen soft A/P Narrative A/P Narrative: Assessment: Doing well on new antibiotic regimen at this point will continue same for another 10 days Plan: Pending clinical status could really later this week proceed with ureteroscopy and stone manipulation for patient to do for her assisted living care and return for procedure in next 1 to 3 weeks We will continue to follow Time Spent With Patient Time: Total time spent is greater than 50% in coordination of care (as documented) at patient's floor/unit and/or counseling patient:
--- NOTE | 2020-12-01 12:34 | Internal Med Progress Note ---
SUBJECTIVE Subjective Patient information: Note initiated : 12/01/20 at 12:30 pm Service Date, if different from initiated Date: [] Patient: Tiny Banuelos 89 y/o F admitted on 11/26/20 for flank pain. Chief Complaint: [] Interval history: Ms. Banuelos is a 89 year old female who presents to the ED with left-sided pain sharp for 3 days. Continue to worsen as well as having malodorous urine as well as nausea and vomiting. The ED workup was consistent with a UTI, additional work-up with CT abd/pelvis w/ contrast showed a stone in the left ureter. The clinical and workup was overall consistent with left pyelonephritis. Patient started on antibiotics IV fluids. Lactate was mildly elevated 2.6. Blood cultures drawn. Urology consulted, a left ureteral double-J stent placed on 11/26/20. She will require a second state ureteroscopy and likely holmium laser lithotripsy once the infection has cleared. 11/27 No overnight event or new complaints. Urine culture. Urology following. Leukocytosis resolved. Hyponatremia this morning. 11/28 Patient complains of some back spasms today. No overnight events or new complaints. Awaiting final urine cultures. Awaiting follow-up labs. 11/29 No overnight events. Patient is a weak, generalized. Complains of generalized aches and pains she has chronic pains. She also complains of constipation. Patient was hoping to go home with home health but is requiring 2 person assist to transition from bed to chair. His management working on placement. Urine culture growing E. coli. 11/30 Urine culture growing E coli resistant to fluoroquinolones, sensitive to Bactrim, discontinued Levaquin and started Bactrim but the patient felt uncomfortable with that so transitioned to Cefuroxime. The patient's main complaint is diffuse pain, chronic in nature but worse after poor sleep and uncomfortable situation overall. Had a large bowel movement yesterday after lactulose was started. Just wants to go home but granddaughter wants her to to go to a SNF. Planning to discuss disposition with granddaughter at bedside later today. 12/01 Stable, on track for discharge tomorrow to SNF. Constitutional Vitals: Vital Signs Temp Pulse Resp BP Pulse Ox 98.6 F 80 20 117/62 96 12/01/20 11:48 12/01/20 04:00 12/01/20 11:48 12/01/20 11:48 12/01/20 11:48 Period Temp Pulse Resp BP Sys/Philippe Pulse Ox Last 24 Hr 96.8 F-98.6 F 79-80 16-20 112-137/56-76 94-98 Intake and Output 11/30/20 12/01/20 12/01/20 21:59 05:59 13:59 Intake Total 450 400 Output Total 2 Balance 450 398 Weight 135.806 kg Intake & Output: Intake & Output 11/30/20 12/01/20 12/01/20 21:59 05:59 13:59 Intake Total 450 400 Output Total 2 Balance 450 398 Weight 135.806 kg Intake: Oral 450 400 Output: # of times incontinent of urine 2 Other: Meal Lunch Percent of Meal Consumed 75% Urine Color Dark Yellow Urine Odor Strong # Bowel Movements 0 Exam: General: Alert, Awake, No acute Distress, obese Eyes/N/T: EOMI, Head/Neck: neck supple, CV: RRR, No murmurs, Pulm: Clear b/l, no wheezing/rhonchi/rales Abd: soft, nontender, +BS x4 Ext: no clubbing/cyanosis, chronic b/l LE lymphedema Neuro: Alert, no focal deficits, moves all extremities, Skin: warm/dry OBJ DATA Labs CBC & Chem 7: 11/27/20 05:22 11/28/20 09:01 Meds: Medications Acetaminophen (Acetaminophen 500 Mg Tablet) 1,000 mg PO Q8H [facility]; Protocol Last Admin: 12/01/20 10:58 Dose: 1,000 mg Documented by: Bisacodyl (Bisacodyl 10 Mg Supp.Rect) 10 mg [place] DAILYP PRN PRN Reason: Constipation Last Admin: 11/29/20 14:45 Dose: 10 mg Documented by: Cefuroxime Axetil (Cefuroxime 500 Mg Tablet) 500 mg PO Q12 [facility]; Protocol Last Admin: 12/01/20 08:08 Dose: 500 mg Documented by: Dextrose (Dextrose 50% 50 Ml Vial) 0 ml IV UD PRN PRN Reason: Hypoglycemia Diagnostic Test (Pha) (Accu-Chek 1 Each Strip) 1 each FS ACHS [facility] Last Admin: 12/01/20 11:01 Dose: 1 each Documented by: Enoxaparin Sodium (Enoxaparin 30 Mg/0.3 Ml Syringe) 30 mg SQ BID [facility] Last Admin: 12/01/20 08:08 Dose: 30 mg Documented by: Glucose (Dextrose 31 Gm Oral.Susp) 15 gm PO PRN PRN PRN Reason: Hypoglycemia Insulin Glargine (Insulin Glargine, Human 1 Unit/0.01 Ml) 56 unit SQ QDAY [facility] Last Admin: 12/01/20 08:08 Dose: 56 units Documented by: Insulin Human Lispro (Insulin Lispro 1 Unit/0.01 Ml Unit) 0 unit SQ ACHS [facility]; Protocol Last Admin: 12/01/20 11:01 Dose: 2 units Documented by: Lactobacillus Rhamnosus (Lactobacillus 1 Capsule) 1 cap PO QDAY [facility] Last Admin: 12/01/20 08:08 Dose: 1 cap Documented by: Lactulose (Lactulose 20 Gm/30 Ml Oral.Laura) 30 gm PO BID PRN PRN Reason: Constipation Meloxicam (Meloxicam 7.5 Mg Tablet) 15 mg PO DAILY [facility] Last Admin: 12/01/20 08:08 Dose: 15 mg Documented by: Methocarbamol (Methocarbamol 750 Mg Tablet) 750 mg PO TIDP PRN PRN Reason: Muscle Spasm Last Admin: 11/30/20 17:16 Dose: 750 mg Documented by: Ondansetron HCl (Ondansetron 4 Mg/2 Ml Vial) 4 mg IV Q6HP PRN PRN Reason: Nausea And Vomiting Last Admin: 11/26/20 10:55 Dose: 4 mg Documented by: Ondansetron HCl (Ondansetron 4 Mg/2 Ml Vial) 4 mg IV Q6HP PRN; Protocol PRN Reason: Nausea And Vomiting Phenazopyridine HCl (Phenazopyridine 200 Mg Tablet) 200 mg PO TIDP PRN PRN Reason: PAINFUL URINATION Last Admin: 11/28/20 15:48 Dose: 200 mg Documented by: Polyethylene Glycol (Polyethylene Glycol 3350 17 Gm Packet) 17 gm PO DAILY [facility] Last Admin: 12/01/20 08:07 Dose: 17 gm Documented by: Sodium Chloride (0.9 % Sodium Chloride 10 Ml Syringe) 10 ml IV Q8 [facility] Last Admin: 12/01/20 05:22 Dose: 10 ml Documented by: Tamsulosin HCl (Tamsulosin 0.4 Mg Capsule) 0.4 mg PO [facility] Last Admin: 11/30/20 21:01 Dose: 0.4 mg Documented by: A/P Narrative A/P Narrative: Assessment: 89-year-old female admitted for left pyelonephritis occurring in the setting of an obstructing left ureteral stone status post ureteral stent placement. Improved after stent and antibiotic therapy. 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
[2020-12-01] MEDS: METHOCARBAMOL 750 MG TABLET PO PRN (16:08)
[2020-12-01] MEDS: TAMSULOSIN 0.4 MG CAPSULE PO SCH (20:30)
[2020-12-02] MEDS: ACETAMINOPHEN 500 MG TABLET PO SCH ×3 (02:22→17:27)
[2020-12-02] MEDS: 0.9 % SODIUM CHLORIDE 10 ML SYRINGE IV SCH ×3 (03:59→22:04)
--- NOTE | 2020-12-02 07:02 | Discharge Summary ---
Discharge Provider Provider Patient information: Note initiated : 12/02/20 at 6:56 am Service Date, if different from initiated Date: [] Patient: Tiny Banuelos 89 y/o F admitted on 11/26/20 for flank pain. Chief Complaint: [] Date of admission: 11/26/20 00:25 Discharge date: 12/02/20 Primary care physician: Red Love DO Consults: 11/25/20 23:45 Consult to Physician [CONS] Routine Comment: Consulting Provider: Carmine Baez Reason For Exam: Physician to Consult 11/26/20 03:21 Consult to Physician [CONS] Routine Comment: Consulting Provider: Raghavendra Gonzalez Reason For Exam: Physician to Consult Discharge Meds Discharge Medications Home Medications aspirin 81 mg tablet,delayed release 81 mg PO QDAY 12/27/18 [History Confirmed 11/25/20 Last Taken Unknown] cholecalciferol (vitamin D3) 125 mcg (5,000 unit) tablet 5,000 unit PO QDAY 12/27/18 [History Confirmed 11/25/20 Last Taken Unknown] coenzyme Q10 10 mg capsule 10 mg PO QDAY cap 12/27/18 [History Confirmed 11/25/20 Last Taken Unknown] cranberry 500 mg capsule 500 mg PO QDAY cap 12/27/18 [History Confirmed 11/25/20 Last Taken Unknown] insulin glargine 100 unit/mL subcutaneous solution See Rx Instructions SUB-Q QDAY 12/27/18 [History Confirmed 11/25/20 Last Taken Unknown] medical compression stockings 1 dose MISCELLANE DAILY 12/27/18 [History Confirmed 11/25/20 Last Taken Unknown] meloxicam 15 mg tablet 15 mg PO QDAY 12/27/18 [History Confirmed 11/25/20 Last Taken Unknown] multivitamin 1 tab PO QDAY 12/27/18 [History Confirmed 11/25/20 Last Taken Unknown] omega-3 fatty acids 350 mg PO QDAY 12/27/18 [History Confirmed 11/25/20 Last Taken Unknown] conjugated estrogens 0.625 mg/gram vaginal cream 0.3125 mg VAGINAL QDAY #30 g 08/17/19 [Rx Confirmed 11/25/20 Last Taken Unknown] lactobacillus combination no.8 3 billion cell capsule 3,000 mmu cells PO QDAY 08/17/19 [History Confirmed 11/25/20 Last Taken Unknown] ondansetron 4 mg PO Q6H PRN #20 tab 07/08/20 [Rx Confirmed 11/25/20 Last Taken Unknown] amoxicillin-pot clavulanate [Augmentin] 1 tab PO Q12H #12 tab 11/28/20 [Rx Last Taken Unknown] lactulose 15 ml PO BID PRN #1200 ml 12/02/20 [Rx Last Taken Unknown] methocarbamol 750 mg PO TIDP PRN 15 Days #60 tab 12/02/20 [Rx Last Taken Unknown] polyethylene glycol 3350 [Miralax] 17 g PO DAILY #30 ea 12/02/20 [Rx Last Taken Unknown] sennosides [senna] 8.6 mg PO BID 30 Days #60 cap 12/02/20 [Rx Last Taken Unknown] tamsulosin 0.4 mg PO HS #30 cap 12/02/20 [Rx Last Taken Unknown] COURSE Hospital Course Hospital course: Ms. Banuelos is a 89 year old female who presents to the ED with left-sided pain sharp for 3 days. Continue to worsen as well as having malodorous urine as well as nausea and vomiting. The ED workup was consistent with a UTI, additional work-up with CT abd/pelvis w/ contrast showed a stone in the left ureter. The clinical and workup was overall consistent with left pyelonephritis. Patient started on antibiotics IV fluids. Lactate was mildly elevated 2.6. Blood cultures drawn. Urology consulted, a left ureteral double-J stent placed on 11/26/20. She will require a second state ureteroscopy and likely holmium laser lithotripsy once the infection has cleared. 11/27 No overnight event or new complaints. Urine culture. Urology following. Leukocytosis resolved. Hyponatremia this morning. 11/28 Patient complains of some back spasms today. Improved with Robaxin prn. No other overnight events or new complaints. Awaiting final urine cultures. Awaiting follow-up labs. 11/29 No overnight events. Patient is a weak, generalized. Complains of generalized aches and pains she has chronic pains. She also complains of constipation. Patient was hoping to go home with home health but is requiring 2 person assist to transition from bed to chair. His management working on placement. Urine culture growing E. coli. 11/30 Urine culture growing E coli resistant to fluoroquinolones, sensitive to Bactrim, discontinued Levaquin and started Bactrim but the patient felt uncomfortable with that so transitioned to Cefuroxime. The patient's main complaint is diffuse pain, chronic in nature but worse after poor sleep and uncomfortable situation overall. Had a large bowel movement yesterday after lactulose was started. Just wants to go home but granddaughter wants her to to go to a SNF. Planning to discuss disposition with granddaughter at bedside later today. 12/01 Stable, on track for discharge tomorrow to SNF. 12/02 Discharged to SNF on Augmentin until follow up with urology for ureteral stent removal. Discharge diagnosis: Left pyelonephritis Secondary discharge diagnosis: Left ureteral calculus s/p ureteral stent (11/26/20) Diabetes mellitus type II Chronic lymphedema Chronic pain Obesity-BMI 54 Time Spent with Patient Time attestation: Total time spent providing and/or coordinating discharge services: EXAM Constitutional Vitals: Temp Pulse Resp BP Pulse Ox 97.7 F 79 16 110/57 96 12/02/20 04:00 12/02/20 04:00 12/02/20 04:00 12/02/20 04:00 12/02/20 04:00 Additional findings Additional findings: Head: Atraumatic, normal inspection. Eyes: normal appearance, no scleral icterus. Neck: full ROM Respiratory: no respiratory distress. Cardiovascular: normal rate and rhythm, S1, S2. GI/Abdominal: soft, nontender, no guarding. Extremities: Bilateral venous stasis w/ edema, full range of motion. Neurological: CN II-XII intact, intact motor, intact sensation. Psychiatric: normal mood. Skin: warm Discharge Plan Patient/Caregiver Discharge Instructions Activity: as per physical therapy Diet: Consistent Carbohydrate Prescriptions: New amoxicillin-pot clavulanate [Augmentin] 875-125 mg tablet 1 tab PO Q12H Qty: 12 RF: 0 methocarbamol 750 mg Tablet 750 mg PO TIDP PRN (Reason: Muscle Spasm) 15 Days Qty: 60 RF: 0 lactulose 20 gram/30 mL Solution 15 ml PO BID PRN (Reason: Constipation) Qty: 1200 RF: 0 polyethylene glycol 3350 [Miralax] 17 gram Powder In Packet 17 g PO DAILY Qty: 30 RF: 3 tamsulosin 0.4 mg Capsule 0.4 mg PO HS Qty: 30 RF: 1 senna 8.6 mg capsule 8.6 mg PO BID 30 Days Qty: 60 RF: 0 Continued meloxicam 15 mg tablet 15 mg PO QDAY RF: 0 Lantus U-100 Insulin 100 unit/mL solution See Rx Instructions SUB-Q QDAY RF: 0 aspirin 81 mg tablet,delayed release (DR/EC) 81 mg PO QDAY RF: 0 cranberry 500 mg capsule 500 mg PO QDAY RF: 0 coenzyme Q10 [Co Q-10] 10 mg capsule 10 mg PO QDAY RF: 0 omega-3 fatty acids 350 mg PO QDAY RF: 0 multivitamin tablet 1 tab PO QDAY RF: 0 cholecalciferol (vitamin D3) 5,000 unit tablet 5,000 unit tablet 5,000 unit PO QDAY RF: 0 medical compression stockings 1 dose MISCELLANE DAILY RF: 0 lactobacillus combination no.8 3 billion cell capsule 3 billion cell capsule 3,000 mmu cells PO QDAY RF: 0 Premarin 0.625 mg/gram cream 0.3125 mg VAGINAL QDAY Qty: 30 RF: 6 ondansetron 4 mg tablet,disintegrating 4 mg PO Q6H PRN (Reason: nausea and vomiting) Qty: 20 RF: 0 Discontinued levofloxacin 500 mg tablet 500 mg PO QDAY Qty: 4 RF: 0 amoxicillin-pot clavulanate [Augmentin] 875-125 mg tablet 1 tab PO BID Qty: 14 RF: 0 Other Ambulatory Orders: OT Discharge Order (Routine) Location: None Selected Ordered By: Vish Carney Physical Therapy at Discharge - General (Routine) Location: None Selected Ordered By: Vish Carney Follow Up Plan Follow up with: Raghavendra Gonzalez MD [Physician] - 12/10/20 9:15 am Red Love DO [Primary Care Provider] - Patient Disposition: Xfer SNF Prognosis: Fair Rehab Potential: Fair I certify that the patient requires SNF services: Yes Overall status at discharge: patient is progressing back to baseline Discharge Orders: Discharge Order (Routine); Ordered 12/02/20 Ordered By: Vish Carney QUALITY VTE Deep Vein Thrombosis/Pulmonary Embolism Present on Admission: No
[2020-12-02] MEDS: INSULIN LISPRO 1 UNIT/0.01 ML UNIT SQ SCH ×4 (07:07→22:03)
--- NOTE | 2020-12-02 07:55 | General Surgery Progress Note ---
SUBJECTIVE Subjective Patient information: Note initiated : 12/02/20 at 7:53 am Service Date, if different from initiated Date: [] Patient: Tiny Banuelos 89 y/o F admitted on 11/26/20 for flank pain. Chief Complaint: [] Interval history: Comfortable this morning with no new changes Constitutional Vitals: Vital Signs Temp Pulse Resp BP Pulse Ox 96.9 F L 81 15 143/67 94 12/02/20 07:20 12/02/20 07:20 12/02/20 07:20 12/02/20 07:20 12/02/20 07:20 Period Temp Pulse Resp BP Sys/Philippe Pulse Ox Last 24 Hr 96.9 F-98.6 F 74-91 13-20 110-143/57-69 94-98 Intake and Output 12/01/20 12/02/20 12/02/20 21:59 05:59 13:59 Intake Total 0 500 Output Total 151 Balance -151 500 Weight 295 lb 8 oz Intake & Output: Intake & Output 12/01/20 12/02/20 12/02/20 21:59 05:59 13:59 Intake Total 0 500 Output Total 151 Balance -151 500 Weight 295 lb 8 oz Intake: Oral 0 500 Output: # of times incontinent of urine 1 Urine/Stool Mix 150 Other: Stool Size Large Stool Color Brown Stool Consistency Liquid # of times incontinent of 1 Bowels Additional findings Additional findings: no changes Resting comfortably A/P Narrative A/P Narrative: Doing well on present regimen and agree with discharge to assisted facility Would see back in 7 to 10 days for reevaluation for likely ureteroscopy stone manipulation Time Spent With Patient Time: Total time spent is greater than 50% in coordination of care (as documented) at patient's floor/unit and/or counseling patient:
[2020-12-02] MEDS: CEFUROXIME 500 MG TABLET PO SCH ×2 (08:15→21:59)
[2020-12-02] MEDS: POLYETHYLENE GLYCOL 3350 17 GM PACKET PO SCH (08:15)
[2020-12-02] MEDS: MELOXICAM 7.5 MG TABLET PO SCH (08:16)
[2020-12-02] MEDS: ENOXAPARIN 30 MG/0.3 ML SYRINGE SQ SCH ×2 (08:16→22:00)
[2020-12-02] MEDS: INSULIN GLARGINE, HUMAN 1 UNIT/0.01 ML SQ SCH (08:16)
[2020-12-02] MEDS: LACTOBACILLUS 1 CAPSULE PO SCH (08:16)
--- NOTE | 2020-12-02 17:49 | Internal Med Progress Note ---
SUBJECTIVE Subjective Patient information: Note initiated : 12/02/20 at 5:47 pm Service Date, if different from initiated Date: [] Patient: Tiny Banuelos 89 y/o F admitted on 11/26/20 for flank pain. Chief Complaint: [] Interval history: Ms. Banuelos is a 89 year old female who presents to the ED with left-sided pain sharp for 3 days. Continue to worsen as well as having malodorous urine as well as nausea and vomiting. The ED workup was consistent with a UTI, additional work-up with CT abd/pelvis w/ contrast showed a stone in the left ureter. The clinical and workup was overall consistent with left pyelonephritis. Patient started on antibiotics IV fluids. Lactate was mildly elevated 2.6. Blood cultures drawn. Urology consulted, a left ureteral double-J stent placed on 11/26/20. She will require a second state ureteroscopy and likely holmium laser lithotripsy once the infection has cleared. 11/27 No overnight event or new complaints. Urine culture. Urology following. Leukocytosis resolved. Hyponatremia this morning. 11/28 Patient complains of some back spasms today. No overnight events or new complaints. Awaiting final urine cultures. Awaiting follow-up labs. 11/29 No overnight events. Patient is a weak, generalized. Complains of generalized aches and pains she has chronic pains. She also complains of constipation. Patient was hoping to go home with home health but is requiring 2 person assist to transition from bed to chair. His management working on placement. Urine culture growing E. coli. 11/30 Urine culture growing E coli resistant to fluoroquinolones, sensitive to Bactrim, discontinued Levaquin and started Bactrim but the patient felt uncomfortable with that so transitioned to Cefuroxime. The patient's main c omplaint is diffuse pain, chronic in nature but worse after poor sleep and uncomfortable situation overall. Had a large bowel movement yesterday after lactulose was started. Just wants to go home but granddaughter wants her to to go to a SNF. Planning to discuss disposition with granddaughter at bedside later today. 12/01 Stable, on track for discharge tomorrow to SNF. 12/02 Discharge postponed as [facility] both denied the referral. CM working on alternative SNF options. Constitutional Vitals: Vital Signs Temp Pulse Resp BP Pulse Ox 98 F 84 15 129/66 96 12/02/20 15:07 12/02/20 15:07 12/02/20 15:07 12/02/20 15:07 12/02/20 15:07 Period Temp Pulse Resp BP Sys/Philippe Pulse Ox Last 24 Hr 96.9 F-98 F 79-91 13-94 110-143/57-69 94-98 Intake and Output 12/02/20 12/02/20 12/02/20 05:59 13:59 21:59 Intake Total 500 360 Balance 500 360 Weight 134.037 kg Patient Weight 12/03/20 05:59 Weight 134.037 kg Intake & Output: Intake & Output 12/02/20 12/02/20 12/02/20 05:59 13:59 21:59 Intake Total 500 360 Balance 500 360 Weight 134.037 kg Intake: Oral 500 360 Other: Meal Lunch Percent of Meal Consumed 100% Feeding Ability Independent Exam: General: Alert, Awake, No acute Distress, obese Eyes/N/T: EOMI, Head/Neck: neck supple, CV: RRR, No murmurs, Pulm: Clear b/l, no wheezing/rhonchi/rales Abd: soft, nontender, +BS x4 Ext: no clubbing/cyanosis, chronic b/l LE lymphedema Neuro: Alert, no focal deficits, moves all extremities, Skin: warm/dry OBJ DATA Labs CBC & Chem 7: 11/27/20 05:22 11/28/20 09:01 Meds: Medications Acetaminophen (Acetaminophen 500 Mg Tablet) 1,000 mg PO Q8H [facility]; Protocol Last Admin: 12/02/20 17:27 Dose: 1,000 mg Documented by: Bisacodyl (Bisacodyl 10 Mg Supp.Rect) 10 mg [place] DAILYP PRN PRN Reason: Constipation Last Admin: 11/29/20 14:45 Dose: 10 mg Documented by: Cefuroxime Axetil (Cefuroxime 500 Mg Tablet) 500 mg PO Q12 [facility]; Protocol Last Admin: 12/02/20 08:15 Dose: 500 mg Documented by: Dextrose (Dextrose 50% 50 Ml Vial) 0 ml IV UD PRN PRN Reason: Hypoglycemia Diagnostic Test (Pha) (Accu-Chek 1 Each Strip) 1 each FS ACHS [facility] Last Admin: 12/02/20 16:33 Dose: 1 each Documented by: Enoxaparin Sodium (Enoxaparin 30 Mg/0.3 Ml Syringe) 30 mg SQ BID [facility] Last Admin: 12/02/20 08:16 Dose: 30 mg Documented by: Glucose (Dextrose 31 Gm Oral.Susp) 15 gm PO PRN PRN PRN Reason: Hypoglycemia Insulin Glargine (Insulin Glargine, Human 1 Unit/0.01 Ml) 56 unit SQ QDAY [facility] Last Admin: 12/02/20 08:16 Dose: 56 units Documented by: Insulin Human Lispro (Insulin Lispro 1 Unit/0.01 Ml Unit) 0 unit SQ [facility]; Protocol Last Admin: 12/02/20 16:33 Dose: 6 units Documented by: Lactobacillus Rhamnosus (Lactobacillus 1 Capsule) 1 cap PO QDAY [facility] Last Admin: 12/02/20 08:16 Dose: 1 cap Documented by: Lactulose (Lactulose 20 Gm/30 Ml Oral.Laura) 30 gm PO BID PRN PRN Reason: Constipation Last Admin: 12/01/20 15:17 Dose: 30 gm Documented by: Meloxicam (Meloxicam 7.5 Mg Tablet) 15 mg PO DAILY [facility] Last Admin: 12/02/20 08:16 Dose: 15 mg Documented by: Methocarbamol (Methocarbamol 750 Mg Tablet) 750 mg PO TIDP PRN PRN Reason: Muscle Spasm Last Admin: 12/01/20 16:08 Dose: 750 mg Documented by: Ondansetron HCl (Ondansetron 4 Mg/2 Ml Vial) 4 mg IV Q6HP PRN PRN Reason: Nausea And Vomiting Last Admin: 11/26/20 10:55 Dose: 4 mg Documented by: Ondansetron HCl (Ondansetron 4 Mg/2 Ml Vial) 4 mg IV Q6HP PRN; Protocol PRN Reason: Nausea And Vomiting Phenazopyridine HCl (Phenazopyridine 200 Mg Tablet) 200 mg PO TIDP PRN PRN Reason: PAINFUL URINATION Last Admin: 11/28/20 15:48 Dose: 200 mg Documented by: Polyethylene Glycol (Polyethylene Glycol 3350 17 Gm Packet) 17 gm PO DAILY [facility] Last Admin: 12/02/20 08:15 Dose: 17 gm Documented by: Sodium Chloride (0.9 % Sodium Chloride 10 Ml Syringe) 10 ml IV Q8 [facility] Last Admin: 12/02/20 12:56 Dose: 10 ml Documented by: Tamsulosin HCl (Tamsulosin 0.4 Mg Capsule) 0.4 mg PO HS [facility] Last Admin: 12/01/20 20:30 Dose: 0.4 mg Documented by: A/P Narrative A/P Narrative: Assessment: 89-year-old female admitted for left pyelonephritis occurring in the setting of an obstructing left ureteral stone status post ureteral stent placement. Improved after stent and antibiotic therapy. 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
[2020-12-02] MEDS: TAMSULOSIN 0.4 MG CAPSULE PO SCH (21:53)
[2020-12-03] MEDS: ACETAMINOPHEN 500 MG TABLET PO SCH ×2 (03:35→10:18)
[2020-12-03] MEDS: 0.9 % SODIUM CHLORIDE 10 ML SYRINGE IV SCH ×2 (06:03→13:46)
[2020-12-03] MEDS: INSULIN LISPRO 1 UNIT/0.01 ML UNIT SQ SCH ×2 (07:30→12:08)
[2020-12-03] MEDS: MELOXICAM 7.5 MG TABLET PO SCH (09:09)
[2020-12-03] MEDS: ENOXAPARIN 30 MG/0.3 ML SYRINGE SQ SCH (09:09)
[2020-12-03] MEDS: CEFUROXIME 500 MG TABLET PO SCH (09:09)
[2020-12-03] MEDS: LACTOBACILLUS 1 CAPSULE PO SCH (09:09)
[2020-12-03] MEDS: POLYETHYLENE GLYCOL 3350 17 GM PACKET PO SCH (09:10)
[2020-12-03] MEDS: INSULIN GLARGINE, HUMAN 1 UNIT/0.01 ML SQ SCH (09:30)
--- NOTE | 2020-12-03 11:38 | Internal Med Progress Note ---
SUBJECTIVE Subjective Patient information: Note initiated : 12/03/20 at 11:36 am Service Date, if different from initiated Date: [] Patient: Tiny Banuelos 89 y/o F admitted on 11/26/20 for flank pain. Chief Complaint: [] Interval history: Ms. Banuelos is a 89 year old female who presents to the ED with left-sided pain sharp for 3 days. Continue to worsen as well as having malodorous urine as well as nausea and vomiting. The ED workup was consistent with a UTI, additional work-up with CT abd/pelvis w/ contrast showed a stone in the left ureter. The clinical and workup was overall consistent with left pyelonephritis. Patient started on antibiotics IV fluids. Lactate was mildly elevated 2.6. Blood cultures drawn. Urology consulted, a left ureteral double-J stent placed on 11/26/20. She will require a second state ureteroscopy and likely holmium laser lithotripsy once the infection has cleared. 11/27 No overnight event or new complaints. Urine culture. Urology following. Leukocytosis resolved. Hyponatremia this morning. 11/28 Patient complains of some back spasms today. No overnight events or new complaints. Awaiting final urine cultures. Awaiting follow-up labs. 11/29 No overnight events. Patient is a weak, generalized. Complains of generalized aches and pains she has chronic pains. She also complains of constipation. Patient was hoping to go home with home health but is requiring 2 person assist to transition from bed to chair. His management working on placement. Urine culture growing E. coli. 11/30 Urine culture growing E coli resistant to fluoroquinolones, sensitive to Bactrim, discontinued Levaquin and started Bactrim but the patient felt uncomfortable with that so transitioned to Cefuroxime. The patient's main complaint is diffuse pain, chronic in nature but worse after poor sleep and uncomfortable situation overall. Had a large bowel movement yesterday after lactulose was started. Just wants to go home but granddaughter wants her to to go to a SNF. Planning to discuss disposition with granddaughter at bedside later today. 12/01 Stable, on track for discharge tomorrow to SNF. 12/02 Discharge postponed as [facility] both denied the referral. CM working on alternative SNF options. 12/03 Waiting for placement. Constitutional Vitals: Vital Signs Temp Pulse Resp BP Pulse Ox 97.2 F 83 16 114/60 94 12/03/20 08:00 12/03/20 08:00 12/03/20 08:00 12/03/20 08:00 12/03/20 08:00 Period Temp Pulse Resp BP Sys/Philippe Pulse Ox Last 24 Hr 97.2 F-98.3 F 79-88 15-94 114-133/60-73 94-97 Intake and Output 12/02/20 12/03/20 12/03/20 21:59 05:59 13:59 Intake Total 1640 100 Balance 1640 100 Weight 134.037 kg 132.812 kg Intake & Output: Intake & Output 12/02/20 12/03/20 12/03/20 21:59 05:59 13:59 Intake Total 1640 100 Balance 1640 100 Weight 134.037 kg 132.812 kg Intake: Oral 1640 100 Other: Meal Nourishment/Supplement Percent of Meal Consumed 100% Feeding Ability Assist with Tray Set Up Exam: General: Alert, Awake, No acute Distress, obese Eyes/N/T: EOMI, Head/Neck: neck supple, CV: RRR, No murmurs, Pulm: Clear b/l, no wheezing/rhonchi/rales Abd: soft, nontender, +BS x4 Ext: no clubbing/cyanosis, chronic b/l LE lymphedema Neuro: Alert, no focal deficits, moves all extremities, Skin: warm/dry OBJ DATA Labs CBC & Chem 7: 11/27/20 05:22 11/28/20 09:01 Meds: Medications Acetaminophen (Acetaminophen 500 Mg Tablet) 1,000 mg PO Q8H CRYSTAL; Protocol Last Admin: 12/03/20 10:18 Dose: 1,000 mg Documented by: Bisacodyl (Bisacodyl 10 Mg Supp.Rect) 10 mg GA DAILYP PRN PRN Reason: Constipation Last Admin: 11/29/20 14:45 Dose: 10 mg Documented by: Cefuroxime Axetil (Cefuroxime 500 Mg Tablet) 500 mg PO Q12 [facility]STAL; Protocol Last Admin: 12/03/20 09:09 Dose: 500 mg Documented by: Dextrose (Dextrose 50% 50 Ml Vial) 0 ml IV UD PRN PRN Reason: Hypoglycemia Diagnostic Test (Pha) (Accu-Chek 1 Each Strip) 1 each FS [facility] Last Admin: 12/03/20 07:20 Dose: 1 each Documented by: Enoxaparin Sodium (Enoxaparin 30 Mg/0.3 Ml Syringe) 30 mg SQ BID [facility] Last Admin: 12/03/20 09:09 Dose: 30 mg Documented by: Glucose (Dextrose 31 Gm Oral.Susp) 15 gm PO PRN PRN PRN Reason: Hypoglycemia Insulin Glargine (Insulin Glargine, Human 1 Unit/0.01 Ml) 56 unit SQ QDAY [facility] Last Admin: 12/03/20 09:30 Dose: 56 units Documented by: Insulin Human Lispro (Insulin Lispro 1 Unit/0.01 Ml Unit) 0 unit SQ [facility]; Protocol Last Admin: 12/03/20 07:30 Dose: 4 units Documented by: Lactobacillus Rhamnosus (Lactobacillus 1 Capsule) 1 cap PO QDAY [facility] Last Admin: 12/03/20 09:09 Dose: 1 cap Documented by: Lactulose (Lactulose 20 Gm/30 Ml Oral.Laura) 30 gm PO BID PRN PRN Reason: Constipation Last Admin: 12/01/20 15:17 Dose: 30 gm Documented by: Meloxicam (Meloxicam 7.5 Mg Tablet) 15 mg PO DAILY [facility] Last Admin: 12/03/20 09:09 Dose: 15 mg Documented by: Methocarbamol (Methocarbamol 750 Mg Tablet) 750 mg PO TIDP PRN PRN Reason: Muscle Spasm Last Admin: 12/01/20 16:08 Dose: 750 mg Documented by: Ondansetron HCl (Ondansetron 4 Mg/2 Ml Vial) 4 mg IV Q6HP PRN PRN Reason: Nausea And Vomiting Last Admin: 11/26/20 10:55 Dose: 4 mg Documented by: Ondansetron HCl (Ondansetron 4 Mg/2 Ml Vial) 4 mg IV Q6HP PRN; Protocol PRN Reason: Nausea And Vomiting Phenazopyridine HCl (Phenazopyridine 200 Mg Tablet) 200 mg PO TIDP PRN PRN Reason: PAINFUL URINATION Last Admin: 11/28/20 15:48 Dose: 200 mg Documented by: Polyethylene Glycol (Polyethylene Glycol 3350 17 Gm Packet) 17 gm PO DAILY [facility] Last Admin: 12/03/20 09:10 Dose: 17 gm Documented by: Sodium Chloride (0.9 % Sodium Chloride 10 Ml Syringe) 10 ml IV Q8 [facility] Last Admin: 12/03/20 06:03 Dose: Not Given Documented by: Tamsulosin HCl (Tamsulosin 0.4 Mg Capsule) 0.4 mg PO HS [facility] Last Admin: 12/02/20 21:53 Dose: 0.4 mg Documented by: A/P Narrative A/P Narrative: Assessment: 89-year-old female admitted for left pyelonephritis occurring in the setting of an obstructing left ureteral stone status post ureteral stent placement. Improved after stent and antibiotic therapy. *Left Hydronephrosis/hydroureter from obstructing stone: s/p stent (11/26) *UTI: E coli-resistant to fluoroquinolones, sensitive for Cefuroxime *SIRS/?Sepsis: resolved *Obesity: *DM: A1c 8.4 *chronic lymphedema/venous stasis P: -Urologist following, second stage ureteroscopy soon after discharge -Cefuroxime PO BID (E coli sensitive) -scheduled Tylenol, home meloxicam -home robaxin -basal and SSI -pt/ot -CM for placement needs -ppx: lovenox bid for obesity -Code status: full Dispo: SNF when a bed is available-medically stable for discharge Time Spent With Patient Time: Total time spent is greater than 50% in coordination of care (as documented) at patient's floor/unit and/or counseling patient: QUALITY VTE Deep Vein Thrombosis/Pulmonary Embolism Present on Admission: No
--- NOTE | 2020-12-03 13:55 | Discharge Summary ---
Discharge Provider Provider Patient information: Note initiated : 12/03/20 at 1:53 pm Service Date, if different from initiated Date: [] Patient: Tiny Banuelos 89 y/o F admitted on 11/26/20 for flank pain. Chief Complaint: [] Date of admission: 11/26/20 00:25 Discharge date: 12/03/20 Primary care physician: Red Love DO Consults: 11/25/20 23:45 Consult to Physician [CONS] Routine Comment: Consulting Provider: Carmine aBez Reason For Exam: Physician to Consult 11/26/20 03:21 Consult to Physician [CONS] Routine Comment: Consulting Provider: Raghavendra Gonzalez Reason For Exam: Physician to Consult 12/02/20 09:16 Consult to Physician [CONS] Routine Comment: SNF referral Consulting Provider: [facility] Reason For Exam: Physician to Consult Discharge Meds Discharge Medications Home Medications aspirin 81 mg tablet,delayed release 81 mg PO QDAY 12/27/18 [History Confirmed 11/25/20 Last Taken Unknown] cholecalciferol (vitamin D3) 125 mcg (5,000 unit) tablet 5,000 unit PO QDAY 0 12/27/18 [History Confirmed 11/25/20 Last Taken Unknown] coenzyme Q10 10 mg capsule 10 mg PO QDAY cap 12/27/18 [History Confirmed 11/25/20 Last Taken Unknown] cranberry 500 mg capsule 500 mg PO QDAY cap 12/27/18 [History Confirmed 11/25/20 Last Taken Unknown] insulin glargine 100 unit/mL subcutaneous solution See Rx Instructions SUB-Q QDAY 12/27/18 [History Confirmed 11/25/20 Last Taken Unknown] medical compression stockings 1 dose MISCELLANE DAILY 12/27/18 [History Confirmed 11/25/20 Last Taken Unknown] meloxicam 15 mg tablet 15 mg PO QDAY 12/27/18 [History Confirmed 11/25/20 Last Taken Unknown] multivitamin 1 tab PO QDAY 12/27/18 [History Confirmed 11/25/20 Last Taken Unknown] omega-3 fatty acids 350 mg PO QDAY 12/27/18 [History Confirmed 11/25/20 Last Taken Unknown] conjugated estrogens 0.625 mg/gram vaginal cream 0.3125 mg VAGINAL QDAY #30 g 08/17/19 [Rx Confirmed 11/25/20 Last Taken Unknown] lactobacillus combination no.8 3 billion cell capsule 3,000 mmu cells PO QDAY 08/17/19 [History Confirmed 11/25/20 Last Taken Unknown] ondansetron 4 mg PO Q6H PRN #20 tab 07/08/20 [Rx Confirmed 11/25/20 Last Taken Unknown] amoxicillin-pot clavulanate [Augmentin] 1 tab PO Q12H #12 tab 11/28/20 [Rx Last Taken Unknown] lactulose 15 ml PO BID PRN #1200 ml 12/02/20 [Rx Last Taken Unknown] methocarbamol 750 mg PO TIDP PRN 15 Days #60 tab 12/02/20 [Rx Last Taken Unknown] polyethylene glycol 3350 [Miralax] 17 g PO DAILY #30 ea 12/02/20 [Rx Last Taken Unknown] sennosides [senna] 8.6 mg PO BID 30 Days #60 cap 12/02/20 [Rx Last Taken Unknown] tamsulosin 0.4 mg PO HS #30 cap 12/02/20 [Rx Last Taken Unknown] COURSE Hospital Course Hospital course: Ms. Banuelos is a 89 year old female who presents to the ED with left-sided pain sharp for 3 days. Continue to worsen as well as having malodorous urine as well as nausea and vomiting. The ED workup was consistent with a UTI, additional work-up with CT abd/pelvis w/ contrast showed a stone in the left ureter. The clinical and workup was overall consistent with left pyelonephritis. Patient started on antibiotics IV fluids. Lactate was mildly elevated 2.6. Blood cultures drawn. Urology consulted, a left ureteral double-J stent placed on 11/26/20. She will require a second state ureteroscopy and likely holmium laser lithotripsy once the infection has cleared. 11/27 No overnight event or new complaints. Urine culture. Urology following. Leukocytosis resolved. Hyponatremia this morning. 11/28 Patient complains of some back spasms today. Improved with Robaxin prn. No other overnight events or new complaints. Awaiting final urine cultures. Awaiting follow-up labs. 11/29 No overnight events. Patient is a weak, generalized. Complains of generalized aches and pains she has chronic pains. She also complains of constipation. Patient was hoping to go home with home health but is requiring 2 person assist to transition from bed to chair. His management working on placement. Urine culture growing E. coli. 11/30 Urine culture growing E coli resistant to fluoroquinolones, sensitive to Bactrim, discontinued Levaquin and started Bactrim but the patient felt uncomfortable with that so transitioned to Cefuroxime. The patient's main complaint is diffuse pain, chronic in nature but worse after poor sleep and uncomfortable situation overall. Had a large bowel movement yesterday after lactulose was started. Just wants to go home but granddaughter wants her to to go to a SNF. Planning to discuss disposition with granddaughter at bedside later today. 12/01 Stable, on track for discharge tomorrow to SNF. 12/02 Discharge postponed due to SNF bed issues. 12/03 Discharged to SNF on Augmentin until follow up with urology for ureteral stent removal. Physical exam Head: Atraumatic, normal inspection. Eyes: normal appearance, no scleral icterus. Neck: full ROM Respiratory: no respiratory distress. Cardiovascular: normal rate and rhythm, S1, S2. GI/Abdominal: soft, nontender, no guarding. Extremities: Bilateral venous stasis w/ edema, full range of motion. Neurological: CN II-XII intact, intact motor, intact sensation. Psychiatric: normal mood. Skin: warm Discharge diagnosis: pyelonephritis of left kidney Reason for admission: Left ureteral stone Time Spent with Patient Time attestation: Total time spent providing and/or coordinating discharge services: Time spent: Greater than 30 minutes EXAM Constitutional Vitals: Temp Pulse Resp BP Pulse Ox 97.4 F 81 16 106/61 97 12/03/20 12:12/03/20 12:12/03/20 12:12/03/20 12:12/03/20 12:00 Discharge Plan Patient/Caregiver Discharge Instructions Activity: as per physical therapy Diet: Consistent Carbohydrate Instructions: Kidney Infection (DC), Urethral Stent Placement (DC) Prescriptions: New amoxicillin-pot clavulanate [Augmentin] 875-125 mg tablet 1 tab PO Q12H Qty: 12 RF: 0 methocarbamol 750 mg Tablet 750 mg PO TIDP PRN (Reason: Muscle Spasm) 15 Days Qty: 60 RF: 0 lactulose 20 gram/30 mL Solution 15 ml PO BID PRN (Reason: Constipation) Qty: 1200 RF: 0 polyethylene glycol 3350 [Miralax] 17 gram Powder In Packet 17 g PO DAILY Qty: 30 RF: 3 tamsulosin 0.4 mg Capsule 0.4 mg PO HS Qty: 30 RF: 1 senna 8.6 mg capsule 8.6 mg PO BID 30 Days Qty: 60 RF: 0 Continued meloxicam 15 mg tablet 15 mg PO QDAY RF: 0 Lantus U-100 Insulin 100 unit/mL solution See Rx Instructions SUB-Q QDAY RF: 0 aspirin 81 mg tablet,delayed release (DR/EC) 81 mg PO QDAY RF: 0 cranberry 500 mg capsule 500 mg PO QDAY RF: 0 coenzyme Q10 [Co Q-10] 10 mg capsule 10 mg PO QDAY RF: 0 omega-3 fatty acids 350 mg PO QDAY RF: 0 multivitamin tablet 1 tab PO QDAY RF: 0 cholecalciferol (vitamin D3) 5,000 unit tablet 5,000 unit tablet 5,000 unit PO QDAY RF: 0 medical compression stockings 1 dose MISCELLANE DAILY RF: 0 lactobacillus combination no.8 3 billion cell capsule 3 billion cell capsule 3,000 mmu cells PO QDAY RF: 0 Premarin 0.625 mg/gram cream 0.3125 mg VAGINAL QDAY Qty: 30 RF: 6 ondansetron 4 mg tablet,disintegrating 4 mg PO Q6H PRN (Reason: nausea and vomiting) Qty: 20 RF: 0 Discontinued levofloxacin 500 mg tablet 500 mg PO QDAY Qty: 4 RF: 0 amoxicillin-pot clavulanate [Augmentin] 875-125 mg tablet 1 tab PO BID Qty: 14 RF: 0 Other Ambulatory Orders: OT Discharge Order (Routine) Location: None Selected Ordered By: Vish Carney Physical Therapy at Discharge - General (Routine) Location: None Selected Ordered By: Vish Carney Follow Up Plan Follow up with: Raghavendra Gonzalez MD [Physician] - 12/10/20 9:15 am Patient Disposition: Xfer SNF Prognosis: Fair Rehab Potential: Fair I certify that the patient requires SNF services: Yes Overall status at discharge: patient is progressing back to baseline Discharge Orders: Discharge Order (Routine); Ordered 12/02/20 Ordered By: Vish Carney QUALITY VTE Deep Vein Thrombosis/Pulmonary Embolism Present on Admission: No
== END 2020-12-03 14:40 | DRG 690 ==
LOC: ED 17:38 → MEDSUR 11-26 00:25
PROVIDERS: ADMIT Internal Medicine; ATTEND Internal Medicine